=== PATIENT | female | born 1935 | race Caucasian/White ===

== ENCOUNTER 2017-10-23 15:47 | Inpatient (IN) | payer MEDICAID ==
[2017-10-23 16:32] LABS: BASO % 0.8 % (0.0-2.0); EOS % 0.6 % (0.0-4.0); HEMOGLOBIN 11.2 g/dL (11.0-16.0); LYMPH # 1.1 K/uL (1.0-4.3); LYMPH % 21.5 % (20.0-40.0); MEAN CORPUSCULAR HEMOGLOBIN 30.5 pg (27.0-31.0); MEAN CORPUSCULAR HGB CONC 33.9 g/dL (33.0-37.0); MEAN PLATELET VOLUME 11.8 fL (7.2-11.7); MONO # 0.6 K/uL (0.0-0.8); MONO % 11.1 % (0.0-10.0); NEUT # 3.5 K/uL (1.8-7.0); NRBC % 0.1 % (0.0-2.0); RBC 3.68 Mil/uL (3.80-5.20); RED CELL DISTRIBUTION WIDTH 13.2 % (11.5-14.5); WHITE BLOOD COUNT 5.3 K/uL (4.8-10.8)
[2017-10-23 16:40] LABS: INR 1.2; PROTHROMBIN TIME 13.8 SECONDS (9.7-12.2)
[2017-10-23 16:43] LABS: ALBUMIN 3.4 g/dL (3.5-5.0); ALT/SGPT 56 U/L (9-52); AST/SGOT 65 U/L (14-36); BLOOD UREA NITROGEN 15 mg/dL (7-17); CALCIUM 8.5 mg/dl (8.6-10.4); GFR AFRICAN-AMERICAN 58; GFR NON-AFRICAN AMERICAN 48
[2017-10-23] MEDS ORDERED: Potassium Chloride 20 mEq/15 ml LIQ UD PO STA (16:57)
[2017-10-23 17:00] LABS: B-TYPE NATRIURETIC PEPTIDE 5150 pg/mL (0-900)
[2017-10-23] MEDS ORDERED: Potassium Chloride 20 mEq/15 ml LIQ UD ONE (17:23)
[2017-10-23 18:39] LABS: SQUAMOUS EPITHIAL 5 /hpf (0-5); URINE BILIRUBIN NEGATIVE (NEGATIVE); URINE BLOOD 1+ (NEGATIVE); URINE CLARITY Hazy (Clear); URINE COLOR Yellow (YELLOW); URINE GLUCOSE (UA) NORMAL (Normal); URINE HYALINE CAST 0-2 /lpf (0-2); URINE LEUKOCYTE ESTERASE NEG Leu/uL (Negative); URINE PROTEIN 1+ mg/dL (NEGATIVE)
--- NOTE | 2017-10-23 18:41 | RAD ---
PROCEDURE: CHEST RADIOGRAPH, 1 VIEW HISTORY: SOB COMPARISON: Comparison is made to 08/30/2014 FINDINGS: LUNGS: There is interval appearance of heterogeneous opacity at the right lower lung PLEURA: Small right pleural effusion is noted. CARDIOVASCULAR: Normal. OSSEOUS STRUCTURES: No significant abnormalities. VISUALIZED UPPER ABDOMEN: Normal. OTHER FINDINGS: None. IMPRESSION: Suspicious for new infiltrate or opacity at the right lower lung associated with more right pleural effusion.
--- NOTE | 2017-10-23 19:09 | CT ---
EXAM: CT Abdomen and Pelvis Without Intravenous Contrast CLINICAL HISTORY: 81 years old, female; Signs and symptoms; Bloating; Cough; Symptoms not specified; Additional info: SOB. Abnormal cxr. Abdominal distension. TECHNIQUE: Axial computed tomography images of the abdomen and pelvis without intravenous contrast. All CT scans at this facility use one or more dose reduction techniques, viz.: automated exposure control; ma/kV adjustment per patient size (including targeted exams where dose is matched to indication; i.e. head); or iterative reconstruction technique. Coronal and sagittal reformatted images were created and reviewed. COMPARISON: No relevant prior studies available. FINDINGS: Motion artifact degrades the images of the abdomen, in particular the bowel Lung bases: Unremarkable. No mass. No consolidation. ABDOMEN: Liver: The liver surface is nodular. Gallbladder and bile ducts: Unremarkable. No calcified stones. No ductal dilation. Pancreas: There is stranding of the peripancreatic fat. No ductal dilation. Spleen: Unremarkable. No splenomegaly. Adrenals: Unremarkable. No mass. Kidneys and ureters: There is a 2 mm calculus in the right kidney. No hydronephrosis. Stomach and bowel: There is colonic diverticulosis. No obstruction. No mucosal thickening. Appendix: No findings to suggest acute appendicitis. PELVIS: Bladder: Unremarkable. No stones. Reproductive: There is a 3 cm cyst noted in the right adnexa.. ABDOMEN and PELVIS: Intraperitoneal space: There is stranding of the mesenteric fat.. A small amount of ascites seen in the pelvis. No free air. Bones/joints: Degenerative changes are noted in the thoracic and the dorsal spine. No acute fracture. No dislocation. Soft tissues: There is body wall edema. Vasculature: The inferior vena cava is enlarged. There is mild to moderate cardiomegaly. Lymph nodes: Unremarkable. No enlarged lymph nodes. IMPRESSION: 1. Mild enlarged cardiac Silhouette with distended inferior vena cava, body wall edema and a small amount of abdominal ascites. Findings suggest right heart failure. 2. Colonic diverticulosis. 3. Nonobstructing calculus in the midportion of the right kidney. 4. Mesenteric edema including stranding around the pancreas. This may be related to #1. Correlate with serum chemistries to exclude pancreatitis. 5. 3 cm right adnexal cyst. Cyst can be a normal finding in postmenopausal females. Characterization with pelvic ultrasound might be considered as a baseline EXAM: CT Chest Without Intravenous Contrast EXAM DATE/TIME: Exam ordered 10/23/2017 5:12 PM CLINICAL HISTORY: 81 years old, female; Signs and symptoms; Bloating; Cough; Symptoms not specified; Additional info: SOB. Abnormal cxr. Abdominal distension. TECHNIQUE: Axial computed tomography images of the chest without intravenous contrast. All CT scans at this facility use one or more dose reduction techniques, viz.: automated exposure control; ma/kV adjustment per patient size (including targeted exams where dose is matched to indication; i.e. head); or iterative reconstruction technique. Coronal and sagittal reformatted images were created and reviewed. COMPARISON: No relevant prior studies available. FINDINGS: Lungs: See below. Pleural space: Bilateral pleural effusions with compression atelectasis at both bases. Atelectasis is noted within the right middle lobe as well. No pneumothorax. Heart: Minimal coronary artery calcifications present. There is moderate cardiomegaly. No significant pericardial effusion. Bones/joints: There is a reverse S-shaped scoliosis of the thoracolumbar spine. No acute fracture. No dislocation. Soft tissues: There is mild body wall edema. Vasculature: Unremarkable. No thoracic aortic aneurysm. Lymph nodes: Unremarkable. No enlarged lymph nodes. IMPRESSION: Moderate sized bilateral pleural effusions with mild body wall edema and moderate cardiomegaly is with compression atelectasis of the lung bases. This may be an reflection of right heart failure. 2.
--- NOTE | 2017-10-23 20:43 | CP.PCM.CON ---
History of Present Illness - History of Present Illness History of Present Illness: 81yo F. PMHx Asthma, HTN, Osteoporosis. p/w SOB and anasarca secondary to acute CHF exacerbation, type unknown, with bilateral pleural effusions L>R. Found to also have AV dissociation, 3rd degree AV block on EKG. Admitting to ICU for monitoring and probable PPM placement. Review of Systems - Review of Systems All systems: reviewed and no additional remarkable complaints except - Cardiovascular Cardiovascular: Pedal Edema - Respiratory Respiratory: Dyspnea Past Patient History - Past Social History Smoking Status: Never Smoked - CARDIAC Hx Hypertension: Yes - PULMONARY Hx Asthma: Yes Hx Tuberculosis: Yes - MUSCULOSKELETAL/RHEUMATOLOGICAL Hx Osteoporosis: Yes Hx Unsteady Gait: Yes - PSYCHIATRIC Hx Substance Use: No - SURGICAL HISTORY Hx Surgeries: No - ANESTHESIA Hx Anesthesia: No Meds Allergies/Adverse Reactions: Allergies Allergy/AdvReac Type Severity Reaction Status Date / Time No Known Allergies Allergy Verified 10/23/17 15:58 Physical Exam - Head Exam Head Exam: ATRAUMATIC, NORMAL INSPECTION, NORMOCEPHALIC - Eye Exam Eye Exam: EOMI, Normal appearance, PERRL - ENT Exam ENT Exam: Mucous Membranes Moist, Normal Exam - Respiratory Exam Respiratory Exam: Decreased Breath Sounds (at bases) - GI/Abdominal Exam GI & Abdominal Exam: Normal Bowel Sounds. absent: Tenderness - Neurological Exam Neurological exam: Alert, CN II-XII Intact Results - Vital Signs Recent Vital Signs: Last Vital Signs Temp 98.3 F 10/23/17 19:40 Pulse 45 L 10/23/17 19:40 Resp 20 10/23/17 19:40 BP 155/66 H 10/23/17 19:40 Pulse Ox 99 10/23/17 19:40 - Labs Result Diagrams: 10/23/17 16:28 10/23/17 16:28 Labs: Laboratory Results - last 24 hr 10/23/17 10/23/17 10/23/17 16:28 16:28 16:28 WBC 5.3 RBC 3.68 L Hgb 11.2 Hct 33.1 L MCV 90.0 MCH 30.5 MCHC 33.9 RDW 13.2 Plt Count 136 MPV 11.8 H Neut % (Auto) 66.0 Lymph % (Auto) 21.5 [place] % (Auto) 11.1 H Eos % (Auto) 0.6 Baso % (Auto) 0.8 Neut # (Auto) 3.5 Lymph # (Auto) 1.1 [place] # (Auto) 0.6 Eos # (Auto) 0.0 Baso # (Auto) 0.0 PT 13.8 H INR 1.2 APTT 31 Sodium 146 Potassium 3.3 L Chloride 111 H Carbon Dioxide 22 Anion Gap 16 BUN 15 Creatinine 1.1 Est GFR ( Amer) 58 Est GFR (Non-Af Amer) 48 Random Glucose 168 H Calcium 8.5 L Magnesium 1.9 Total Bilirubin 0.9 AST 65 H ALT 56 H Alkaline Phosphatase 55 Troponin I < 0.0120 NT-Pro-B Natriuret Pep 5150 H Total Protein 6.9 Albumin 3.4 L Globulin 3.5 Albumin/Globulin Ratio 1.0 Urine Color Urine Clarity Urine pH Ur Specific [place] Urine Protein Urine Glucose (UA) Urine Ketones Urine Blood Urine Nitrate Urine Bilirubin Urine Urobilinogen Ur Leukocyte Esterase Urine WBC (Auto) Urine RBC (Auto) Ur Squamous Epith Cells Hyaline Casts 10/23/17 18:28 WBC RBC Hgb Hct MCV MCH MCHC RDW Plt Count MPV Neut % (Auto) Lymph % (Auto) [place] % (Auto) Eos % (Auto) Baso % (Auto) Neut # (Auto) Lymph # (Auto) [place] # (Auto) Eos # (Auto) Baso # (Auto) PT INR APTT Sodium Potassium Chloride Carbon Dioxide Anion Gap BUN Creatinine Est GFR ( Amer) Est GFR (Non-Af Amer) Random Glucose Calcium Magnesium Total Bilirubin AST ALT Alkaline Phosphatase Troponin I NT-Pro-B Natriuret Pep Total Protein Albumin Globulin Albumin/Globulin Ratio Urine Color Yellow Urine Clarity Hazy Urine pH 5.0 Ur Specific [place] 1.012 Urine Protein 1+ H Urine Glucose (UA) Normal Urine Ketones Negative Urine Blood 1+ H Urine Nitrate Negative Urine Bilirubin Negative Urine Urobilinogen 2.0 H Ur Leukocyte Esterase Neg Urine WBC (Auto) 4 Urine RBC (Auto) 10 H Ur Squamous Epith Cells 5 Hyaline Casts 0-2 Assessment & Plan (1) Third degree AV block Assessment and Plan: 81yo F. PMHx Asthma, HTN, Osteoporosis. p/w SOB and anasarca secondary to acute CHF exacerbation, type unknown, with bilateral pleural effusions L>R. Found to also have AV dissociation, 3rd degree AV block on EKG. Admitting to ICU for monitoring and probable PPM placement. Neuro: alert and oriented x 3 Pulm: SOB secondary to pulmonary edema with bilateral pleural effusions, diuresing. Will start BIPAP if needed. currently on [place] oxygen. CV: hemodynamically stable. Bradycardic with 3rd degree AV block. bedside external pacer to be placed. Being evaluated for PPM placement. Acute CHF exacerbation, diuresis for now. Obtain echo. Blood pressure control. Hem: no acute issues. Renal: no acute issues, diuresing. Endo: no acute issues GI: heart healthy diet ID: no acute issues DVT proph - lovenox GI proph - not currently indicated sawyer for strict I/O's during acute illness Code status - full code Critical Care Time spent 35 minutes Multi-disciplinary rounds were performed with house staff, nursing, speech therapy, respiratory therapy, pharmacy and nutrition with integrated input from the primary team/attending and other consulting services. The documented time is cumulative and includes review of patient data/exams/labs/chart review and examination of the patient on rounds and throughout the day; time is exclusive of any procedures or teaching time. Status: Acute
--- NOTE | 2017-10-23 20:55 | C.PDOC ---
Time Seen by Provider: 10/23/17 16:05 Chief Complaint (Nursing): Shortness Of Breath History Per: Patient, Family Onset/Duration Of Symptoms: Days Current Symptoms Are (Timing): Worse Current Respiratory Medications: See Home Med List Severity: Moderate Associated Symptoms: Ankle/Leg Swelling Additional History Per: Prior Records Past Medical History Reviewed: Historical Data, Nursing Documentation, Vital Signs Vital Signs: Last Vital Signs Temp 98.3 F 10/23/17 19:40 Pulse 45 L 10/23/17 19:40 Resp 20 10/23/17 19:40 BP 155/66 H 10/23/17 19:40 Pulse Ox 99 10/23/17 19:40 - Medical History PMH: Asthma, HTN, Osteoporosis Family History: States: Unknown Family Hx - Social History Hx Alcohol Use: No Hx Substance Use: No - Immunization History Hx Tetanus Toxoid Vaccination: No Hx Influenza Vaccination: No Hx Pneumococcal Vaccination: No Review Of Systems Except As Marked, All Systems Reviewed And Found Negative. Constitutional: Negative for: Fever Cardiovascular: Positive for: Edema Respiratory: Positive for: Shortness of Breath Gastrointestinal: Positive for: Other (Abdominal distention). Negative for: Vomiting Musculoskeletal: Negative for: Neck Pain Neurological: Negative for: Weakness, Numbness, Seizures, Altered Mental Status Physical Exam - Physical Exam Appears: No Acute Distress, Chronically Ill Skin: Normal Color, Warm, Dry Head: Atraumatic, Normacephalic Eye(s): bilateral: PERRL, EOMI Neck: Normal ROM, Supple Cardiovascular: Rhythm Regular Respiratory: No Accessory Muscle Use, Rales (at bases) Gastrointestinal/Abdominal: Soft, No Tenderness, Distention Extremity: Normal ROM, Pedal Edema, No Calf Tenderness Neurological/Psych: Oriented x3, Normal Motor, Normal Sensation ED Course And Treatment - Laboratory Results Result Diagrams: 10/23/17 16:28 10/23/17 16:28 Interpretation Of Abnormal: Elevated BNP ECG: Interpreted By Me, Viewed By Me ECG Rhythm: 2nd Degree HB [place] II (?), 3rd Degree HB (?) ECG Interpretation: Abnormal Interpretation Of ECG: AV dissociation Rate From EC O2 Sat by Pulse Oximetry: 99 (on [place]) Pulse Ox Interpretation: Normal - CT Scan/US CT chest/abd/pel Other Rad Studies (CT/US): Read By Radiologist, Radiology Report Reviewed CT/US Interpretation: IMPRESSION: Moderate sized bilateral pleural effusions with mild body wall edema and. moderate cardiomegaly is with compression atelectasis of the lung bases. This. may be an reflection of right heart failure. IMPRESSION: 1. Mild enlarged cardiac Silhouette with distended inferior vena cava, body. wall edema and a small amount of abdominal ascites. Findings suggest right. heart failure. . 2. Colonic diverticulosis. . 3. Nonobstructing calculus in the midportion of the right kidney. . 4. Mesenteric edema including stranding around the pancreas. This may be. related to #1. Correlate with serum chemistries to exclude pancreatitis. . 5. 3 cm right adnexal cyst. Cyst can be a normal finding in postmenopausal. females. Characterization with pelvic ultrasound might be considered as a baseline - Physician Consult Information Physician Contacted: Wilbert Lovelace (Cardio) Outcome Of Conversation: He reviewed the EKG. He wants pt to be admitted to ICU and he will consult. Pt was accepted by Dr. Santillan to ICU Progress - Interventions Interventions:: Observation, Oxygen - Medications Administered Oral: Other (KCl) Intravenous: Diuretic - Data Reviewed Data Reviewed: Lab, Diagnostic imaging, EKG, Old records - Patient Status Patient status: Partially improved - Critical Care Citical Care: Excluding Proc Time Critical Care Time: 60 minutes - Continuity of Care Discussed patient case with:: Patient, Family-HIPPA compliant, ED Nurse, Covering for PMD Discussed pt. case with programmer analyst consultant/specialty: Cardiology, Pulmonary/Crit. Care - Patient Plan Patient Plan: Admission, ICU Disposition Discussed With DrMansoor: Gera Bhandari Comment: He accepted pt on hospitalist service. Doctor Will See Patient In The: Hospital Counseled Patient/Family Regarding: Studies Performed, Diagnosis - Disposition Disposition: HOSPITALIZED Disposition Time: 20:58 Condition: SERIOUS - Clinical Impression Clinical Impression: AV dissociation, Anasarca, CHF exacerbation
--- NOTE | 2017-10-23 22:29 | CP.PCM.HP ---
<Lupe Thomas - Last Filed: 10/24/17 05:42> History of Present Illness - History of Present Illness History of Present Illness: CC: facial and lower extremity swelling 81 year old female with past medical history of hypertension presents to the ED today complaining of shortness of breath, facial swelling and bilateral lower extremity swelling. Patient reports her symptom started 3 days ago and they have been getting worse progressively. Patient denies prior history of the same. Patient also denies having recent cardiac workup done. Patient saw her PMD 2 weeks prior and denies medication changes. Patient denies having fever, chills, headache, nausea, vomiting, diarrhea, or urinary symptoms. Mold Cleaner used [id number] PMD: Bhanu Ramires PMHx: HTN, osteoporosis PSHx: denies Allergy: NKDA Social Hx: Denies tobacco, alcohol or other drug use Family Hx: non contributory Home meds: ASA 81mg, norvasc 5mg Present on Admission - Present on Admission Any Indicators Present on Admission: No Review of Systems - Constitutional Constitutional: As Per HPI. absent: Chills, Fever - EENT Eyes: As Per HPI. absent: Blind Spots, Blurred Vision, Decreased Night Vision Ears: As Per HPI. absent: Decreased Hearing, Ear Discharge, Dizziness Nose/Mouth/Throat: As Per HPI. absent: Epistaxis, Nasal Obstruction, Nasal Trauma - Breasts Breasts: As Per HPI - Cardiovascular Cardiovascular: As Per HPI, Edema, Leg Edema. absent: Chest Pain, Chest Pain at Rest, Chest Pain with Activity, Syncope - Respiratory Respiratory: As Per HPI, Cough, Dyspnea - Gastrointestinal Gastrointestinal: As Per HPI. absent: Abdominal Pain, Diarrhea, Nausea, Vomiting - Genitourinary Genitourinary: As Per HPI. absent: Dysuria, Flank Pain - Reproductive: Female Reproductive:Female: As Per HPI - Menstruation Menstruation: As Per HPI - Musculoskeletal Musculoskeletal: As Per HPI - Integumentary Integumentary: As Per HPI - Neurological Neurological: As Per HPI. absent: Dizziness, Headaches, Tremor - Psychiatric Psychiatric: As Per HPI. absent: Anxiety, Confusion - Endocrine Endocrine: As Per HPI - Hematologic/Lymphatic Hematologic: As Per HPI Past Patient History - Past Social History Smoking Status: Never Smoked - CARDIAC Hx Hypertension: Yes - PULMONARY Hx Asthma: Yes Hx Tuberculosis: Yes - MUSCULOSKELETAL/RHEUMATOLOGICAL Hx Osteoporosis: Yes Hx Unsteady Gait: Yes - PSYCHIATRIC Hx Substance Use: No - SURGICAL HISTORY Hx Surgeries: No - ANESTHESIA Hx Anesthesia: No Meds Allergies/Adverse Reactions: Allergies Allergy/AdvReac Type Severity Reaction Status Date / Time No Known Allergies Allergy Verified 10/23/17 15:58 Physical Exam - Constitutional Appears: Non-toxic, No Acute Distress, Chronically Ill - Head Exam Head Exam: ATRAUMATIC, NORMOCEPHALIC - Eye Exam Eye Exam: EOMI, Normal appearance - ENT Exam ENT Exam: Mucous Membranes Moist - Respiratory Exam Respiratory Exam: Decreased Breath Sounds, NORMAL BREATHING PATTERN. absent: Respiratory Distress - Cardiovascular Exam Cardiovascular Exam: REGULAR RHYTHM, +S1, +S2 - GI/Abdominal Exam GI & Abdominal Exam: Normal Bowel Sounds, Soft. absent: Tenderness - Extremities Exam Extremities exam: Positive for: pedal edema, pedal pulses present Additional comments: bilateral lower extremity edema - Neurological Exam Neurological exam: Alert, Oriented x3 - Psychiatric Exam Psychiatric exam: Normal Affect, Normal Mood - Skin Skin Exam: Dry, Warm Results - Vital Signs Recent Vital Signs: Last Vital Signs Temp 98.1 F 10/23/17 21:40 Pulse 47 L 10/23/17 21:40 Resp 20 10/23/17 21:40 BP 154/100 H 10/23/17 21:40 Pulse Ox 98 10/23/17 21:40 - Labs Result Diagrams: 10/23/17 16:28 10/23/17 16:28 Labs: Laboratory Results - last 24 hr 10/23/17 10/23/17 10/23/17 16:28 16:28 16:28 WBC 5.3 RBC 3.68 L Hgb 11.2 Hct 33.1 L MCV 90.0 MCH 30.5 MCHC 33.9 RDW 13.2 Plt Count 136 MPV 11.8 H Neut % (Auto) 66.0 Lymph % (Auto) 21.5 [place] % (Auto) 11.1 H Eos % (Auto) 0.6 Baso % (Auto) 0.8 Neut # (Auto) 3.5 Lymph # (Auto) 1.1 [place] # (Auto) 0.6 Eos # (Auto) 0.0 Baso # (Auto) 0.0 PT 13.8 H INR 1.2 APTT 31 Sodium 146 Potassium 3.3 L Chloride 111 H Carbon Dioxide 22 Anion Gap 16 BUN 15 Creatinine 1.1 Est GFR ( Amer) 58 Est GFR (Non-Af Amer) 48 Random Glucose 168 H Calcium 8.5 L Magnesium 1.9 Total Bilirubin 0.9 AST 65 H ALT 56 H Alkaline Phosphatase 55 Troponin I < 0.0120 NT-Pro-B Natriuret Pep 5150 H Total Protein 6.9 Albumin 3.4 L Globulin 3.5 Albumin/Globulin Ratio 1.0 Urine Color Urine Clarity Urine pH Ur Specific [place] Urine Protein Urine Glucose (UA) Urine Ketones Urine Blood Urine Nitrate Urine Bilirubin Urine Urobilinogen Ur Leukocyte Esterase Urine WBC (Auto) Urine RBC (Auto) Ur Squamous Epith Cells Hyaline Casts 10/23/17 18:28 WBC RBC Hgb Hct MCV MCH MCHC RDW Plt Count MPV Neut % (Auto) Lymph % (Auto) [place] % (Auto) Eos % (Auto) Baso % (Auto) Neut # (Auto) Lymph # (Auto) [place] # (Auto) Eos # (Auto) Baso # (Auto) PT INR APTT Sodium Potassium Chloride Carbon Dioxide Anion Gap BUN Creatinine Est GFR ( Amer) Est GFR (Non-Af Amer) Random Glucose Calcium Magnesium Total Bilirubin AST ALT Alkaline Phosphatase Troponin I NT-Pro-B Natriuret Pep Total Protein Albumin Globulin Albumin/Globulin Ratio Urine Color Yellow Urine Clarity Hazy Urine pH 5.0 Ur Specific [place] 1.012 Urine Protein 1+ H Urine Glucose (UA) Normal Urine Ketones Negative Urine Blood 1+ H Urine Nitrate Negative Urine Bilirubin Negative Urine Urobilinogen 2.0 H Ur Leukocyte Esterase Neg Urine WBC (Auto) 4 Urine RBC (Auto) 10 H Ur Squamous Epith Cells 5 Hyaline Casts 0-2 Assessment & Plan - Assessment and Plan (Free Text) Assessment: Anasarca, shortness of breath -Likely secondary to CHF Exacerbation -Management per ICU team 3rd degree AV block -Cardiology consulted, Dr. Lovelace help appreciated Hypertension -Resume Norvasc 5mg <Gera Bhandari - Last Filed: 10/24/17 06:26> Results - Vital Signs Recent Vital Signs: Last Vital Signs Temp 97.8 F 10/24/17 04:00 Pulse 42 L 10/24/17 06:00 Resp 22 10/24/17 06:00 BP 149/57 L 10/24/17 05:58 Pulse Ox 99 10/24/17 06:00 - Labs Result Diagrams: 10/24/17 05:56 10/23/17 16:28 Labs: Laboratory Results - last 24 hr 10/23/17 10/23/17 10/23/17 16:28 16:28 16:28 WBC 5.3 RBC 3.68 L Hgb 11.2 Hct 33.1 L MCV 90.0 MCH 30.5 MCHC 33.9 RDW 13.2 Plt Count 136 MPV 11.8 H Neut % (Auto) 66.0 Lymph % (Auto) 21.5 [place] % (Auto) 11.1 H Eos % (Auto) 0.6 Baso % (Auto) 0.8 Neut # (Auto) 3.5 Lymph # (Auto) 1.1 [place] # (Auto) 0.6 Eos # (Auto) 0.0 Baso # (Auto) 0.0 PT 13.8 H INR 1.2 APTT 31 Sodium 146 Potassium 3.3 L Chloride 111 H Carbon Dioxide 22 Anion Gap 16 BUN 15 Creatinine 1.1 Est GFR ( Amer) 58 Est GFR (Non-Af Amer) 48 Random Glucose 168 H Calcium 8.5 L Magnesium 1.9 Total Bilirubin 0.9 AST 65 H ALT 56 H Alkaline Phosphatase 55 Troponin I < 0.0120 NT-Pro-B Natriuret Pep 5150 H Total Protein 6.9 Albumin 3.4 L Globulin 3.5 Albumin/Globulin Ratio 1.0 Urine Color Urine Clarity Urine pH Ur Specific [place] Urine Protein Urine Glucose (UA) Urine Ketones Urine Blood Urine Nitrate Urine Bilirubin Urine Urobilinogen Ur Leukocyte Esterase Urine WBC (Auto) Urine RBC (Auto) Ur Squamous Epith Cells Hyaline Casts 10/23/17 10/24/17 18:28 05:56 WBC 6.5 RBC 3.47 L Hgb 10.6 L Hct 31.3 L MCV 90.3 MCH 30.5 MCHC 33.8 RDW 13.5 Plt Count 125 L MPV 12.8 H Neut % (Auto) 55.5 Lymph % (Auto) 30.9 [place] % (Auto) 12.4 H Eos % (Auto) 0.5 Baso % (Auto) 0.7 Neut # (Auto) 3.6 Lymph # (Auto) 2.0 [place] # (Auto) 0.8 Eos # (Auto) 0.0 Baso # (Auto) 0.0 PT INR APTT Sodium Potassium Chloride Carbon Dioxide Anion Gap BUN Creatinine Est GFR ( Amer) Est GFR (Non-Af Amer) Random Glucose Calcium Magnesium Total Bilirubin AST ALT Alkaline Phosphatase Troponin I NT-Pro-B Natriuret Pep Total Protein Albumin Globulin Albumin/Globulin Ratio Urine Color Yellow Urine Clarity Hazy Urine pH 5.0 Ur Specific [place] 1.012 Urine Protein 1+ H Urine Glucose (UA) Normal Urine Ketones Negative Urine Blood 1+ H Urine Nitrate Negative Urine Bilirubin Negative Urine Urobilinogen 2.0 H Ur Leukocyte Esterase Neg Urine WBC (Auto) 4 Urine RBC (Auto) 10 H Ur Squamous Epith Cells 5 Hyaline Casts 0-2 Assessment & Plan - Date & Time Date: 10/24/17 (I have seen and examined the patient. I agree with the findings and plan of care as documented by Dr. Thomas. Patient with Acute CHF, third degree heart block, and pulmonary edema. Consult to cardio. Admit to ICU. Management as per ICU. Monitor for acute changes.) Time: 06:25 Attending/Attestation - Attestation I have personally seen and examined this patient.: Yes I have fully participated in the care of the patient.: Yes I have reviewed all pertinent clinical information: Yes
[2017-10-24 06:03] LABS: BASO % 0.7 % (0.0-2.0); EOS % 0.5 % (0.0-4.0); HEMOGLOBIN 10.6 g/dL (11.0-16.0); LYMPH % 30.9 % (20.0-40.0); MEAN CELL VOLUME 90.3 fL (81.0-99.0); MEAN CORPUSCULAR HEMOGLOBIN 30.5 pg (27.0-31.0); MEAN CORPUSCULAR HGB CONC 33.8 g/dL (33.0-37.0); MEAN PLATELET VOLUME 12.8 fL (7.2-11.7); MONO # 0.8 K/uL (0.0-0.8); MONO % 12.4 % (0.0-10.0); NEUT # 3.6 K/uL (1.8-7.0); NEUT % 55.5 % (50.0-75.0); NRBC % 0.1 % (0.0-2.0); RBC 3.47 Mil/uL (3.80-5.20); RED CELL DISTRIBUTION WIDTH 13.5 % (11.5-14.5); WHITE BLOOD COUNT 6.5 K/uL (4.8-10.8)
[2017-10-24 06:50] LABS: ALB/GLOB RATIO 0.9 (1.0-2.1); ALBUMIN 3.1 g/dL (3.5-5.0)
[2017-10-24 07:02] LABS: ALT/SGPT 49 U/L (9-52); AST/SGOT 61 U/L (14-36); BLOOD UREA NITROGEN 15 mg/dL (7-17); CALCIUM 8.9 mg/dl (8.6-10.4); GFR AFRICAN-AMERICAN > 60; GFR NON-AFRICAN AMERICAN 53
[2017-10-24] MEDS ORDERED: Potassium Chloride 20 mEq/15 ml LIQ UD PO ONE (07:30)
[2017-10-24 08:22] LABS: CK-MB 0.92 ng/mL (0.0-3.38)
--- NOTE | 2017-10-24 08:27 | RAD ---
PROCEDURE: CHEST RADIOGRAPH, 1 VIEW HISTORY: chf exacerbation COMPARISON: 10/23/2009 FINDINGS: LUNGS: Clear. PLEURA: No pneumothorax or pleural fluid seen. CARDIOVASCULAR: Cardiomegaly. No congestive change. OSSEOUS STRUCTURES: Thoracic levoscoliosis. VISUALIZED UPPER ABDOMEN: Normal. OTHER FINDINGS: None. IMPRESSION: No active disease.
--- NOTE | 2017-10-24 10:04 | CP.PCM.CON ---
<Wale Upton - Last Filed: 10/24/17 15:17> History of Present Illness - History of Present Illness History of Present Illness: PGY-[address] 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 Patient reports her symptom started 3 days ago and they have been getting worse progressively. Patient denies prior history of the same. Patient also denies having recent cardiac workup done. Patient saw her PMD 2 weeks prior and denies medication changes. Patient denies having chest pain, fever, chills, headache, nausea, vomiting, diarrhea, or urinary symptoms. Pt seen and examined at bedside. Nursing reports no acute events overnight. Patient denies chest pain, dizziness, SOB, or palpitations this AM. She is able to talk in full sentences. Denies seeing die casting machine setter recently or having recent cath/stress test. PMD: Bhanu Ramires PMHx: HTN, osteoporosis PSHx: denies Allergy: NKDA Social Hx: Denies tobacco, alcohol or other drug use Family Hx: non contributory Home meds: ASA 81mg, norvasc 5mg Review of Systems - Constitutional Constitutional: Weight Gain. absent: Anorexia, Snoring - EENT Eyes: absent: Change in Vision Nose/Mouth/Throat: absent: Nasal Discharge - Cardiovascular Cardiovascular: Dyspnea, Dyspnea on Exertion, Leg Edema, Pedal Edema. absent: Chest Pain - Respiratory Respiratory: Dyspnea, Dyspnea on Exertion - Gastrointestinal Gastrointestinal: absent: Nausea, Vomiting - Genitourinary Genitourinary: absent: Dysuria - Musculoskeletal Musculoskeletal: absent: Numbness, Tingling - Neurological Neurological: absent: Tingling, Weakness - Endocrine Endocrine: absent: Fatigue, Palpitations Past Patient History - Past Medical History & Family History Past Medical History?: Yes - Past Social History Smoking Status: Never Smoked - CARDIAC Hx Hypertension: Yes - PULMONARY Hx Asthma: Yes Hx Tuberculosis: Yes - NEUROLOGICAL Hx Neurological Disorder: No - HEENT Hx HEENT Problems: No - RENAL Hx Chronic Kidney Disease: No - ENDOCRINE/METABOLIC Hx Endocrine Disorders: No - HEMATOLOGICAL/ONCOLOGICAL Hx Blood Disorders: No - INTEGUMENTARY Hx Dermatological Problems: No - MUSCULOSKELETAL/RHEUMATOLOGICAL Hx Osteoporosis: Yes Hx Unsteady Gait: Yes - GASTROINTESTINAL Hx Gastrointestinal Disorders: No - GENITOURINARY/GYNECOLOGICAL Hx Genitourinary Disorders: No - PSYCHIATRIC Hx Substance Use: No - SURGICAL HISTORY Hx Surgeries: No - ANESTHESIA Hx Anesthesia: No Meds Allergies/Adverse Reactions: Allergies Allergy/AdvReac Type Severity Reaction Status Date / Time No Known Allergies Allergy Verified 10/23/17 15:58 - Medications Medications: Current Medications Amlodipine Besylate (Norvasc) 5 mg PO DAILY [facility] Enoxaparin Sodium (Lovenox) 40 mg SC DAILY [facility] Famotidine (Pepcid) 20 mg IVP DAILY [facility] Last Admin: 10/24/17 09:59 Dose: 20 mg Furosemide (Lasix) 40 mg IVP Q12H [facility] Last Admin: 10/24/17 07:25 Dose: 40 mg Pneumococcal Polyvalent Vaccine (Pneumovax 23 Vaccine) 0.5 ml IM .ONCE ONE Stop: 10/25/17 10:01 Physical Exam - Additional Findings Additional findings: - Constitutional Appears: Non-toxic, No Acute Distress, Chronically Ill - Head Exam Head Exam: ATRAUMATIC, NORMOCEPHALIC - Eye Exam Eye Exam: EOMI, Normal appearance - ENT Exam ENT Exam: Mucous Membranes Moist - Respiratory Exam Respiratory Exam: Decreased Breath Sounds, NORMAL BREATHING PATTERN. absent: Respiratory Distress - Cardiovascular Exam Cardiovascular Exam: REGULAR RHYTHM, +S1, +S2 - GI/Abdominal Exam GI & Abdominal Exam: Normal Bowel Sounds, Soft. absent: Tenderness - Extremities Exam Extremities exam: Positive for: pedal edema, pedal pulses present Additional comments: bilateral lower extremity edema - Neurological Exam Neurological exam: Alert, Oriented x3 - Psychiatric Exam Psychiatric exam: Normal Affect, Normal Mood - Skin Skin Exam: Dry, Warm Results - Vital Signs Recent Vital Signs: Last Vital Signs Temp 99.4 F 10/24/17 08:00 Pulse 44 L 10/24/17 07:58 Resp 17 10/24/17 07:58 BP 136/57 L 10/24/17 07:58 Pulse Ox 96 10/24/17 07:58 - Labs Result Diagrams: 10/24/17 05:56 10/24/17 05:56 Labs: Laboratory Results - last 24 hr 10/23/17 10/23/17 10/23/17 16:28 16:28 16:28 WBC 5.3 RBC 3.68 L Hgb 11.2 Hct 33.1 L MCV 90.0 MCH 30.5 MCHC 33.9 RDW 13.2 Plt Count 136 MPV 11.8 H Neut % (Auto) 66.0 Lymph % (Auto) 21.5 Boundary % (Auto) 11.1 H Eos % (Auto) 0.6 Baso % (Auto) 0.8 Neut # (Auto) 3.5 Lymph # (Auto) 1.1 Boundary # (Auto) 0.6 Eos # (Auto) 0.0 Baso # (Auto) 0.0 Differential Comment PT 13.8 H INR 1.2 APTT 31 Sodium 146 Potassium 3.3 L Chloride 111 H Carbon Dioxide 22 Anion Gap 16 BUN 15 Creatinine 1.1 Est GFR ( Amer) 58 Est GFR (Non-Af Amer) 48 Random Glucose 168 H Calcium 8.5 L Phosphorus Magnesium 1.9 Total Bilirubin 0.9 AST 65 H ALT 56 H Alkaline Phosphatase 55 Total Creatine Kinase CK-MB (Mass) Troponin I < 0.0120 NT-Pro-B Natriuret Pep 5150 H Total Protein 6.9 Albumin 3.4 L Globulin 3.5 Albumin/Globulin Ratio 1.0 Urine Color Urine Clarity Urine pH Ur Specific [place] Urine Protein Urine Glucose (UA) Urine Ketones Urine Blood Urine Nitrate Urine Bilirubin Urine Urobilinogen Ur Leukocyte Esterase Urine WBC (Auto) Urine RBC (Auto) Ur Squamous Epith Cells Hyaline Casts 10/23/17 10/24/17 10/24/17 18:28 05:56 05:56 WBC 6.5 RBC 3.47 L Hgb 10.6 L Hct 31.3 L MCV 90.3 MCH 30.5 MCHC 33.8 RDW 13.5 Plt Count 125 L MPV 12.8 H Neut % (Auto) 55.5 Lymph % (Auto) 30.9 Boundary % (Auto) 12.4 H Eos % (Auto) 0.5 Baso % (Auto) 0.7 Neut # (Auto) 3.6 Lymph # (Auto) 2.0 Boundary # (Auto) 0.8 Eos # (Auto) 0.0 Baso # (Auto) 0.0 Differential Comment PT INR APTT Sodium 145 Potassium 3.2 L Chloride 109 H Carbon Dioxide 23 Anion Gap 17 BUN 15 Creatinine 1.0 Est GFR ( Amer) > 60 Est GFR (Non-Af Amer) 53 Random Glucose 87 Calcium 8.9 Phosphorus 4.1 Magnesium 1.8 Total Bilirubin 0.9 AST 61 H ALT 49 Alkaline Phosphatase 56 Total Creatine Kinase 68 CK-MB (Mass) 0.92 Troponin I 0.0200 NT-Pro-B Natriuret Pep Total Protein 6.4 Albumin 3.1 L Globulin 3.3 Albumin/Globulin Ratio 0.9 L Urine Color Yellow Urine Clarity Hazy Urine pH 5.0 Ur Specific [place] 1.012 Urine Protein 1+ H Urine Glucose (UA) Normal Urine Ketones Negative Urine Blood 1+ H Urine Nitrate Negative Urine Bilirubin Negative Urine Urobilinogen 2.0 H Ur Leukocyte Esterase Neg Urine WBC (Auto) 4 Urine RBC (Auto) 10 H Ur Squamous Epith Cells 5 Hyaline Casts 0-2 Assessment & Plan - Assessment and Plan (Free Text) Plan: 3rd degree AV block Cardiology consulted, Dr. Lovelace EP die casting machine setter, Dr Anderson consulted EKrd degree heart block - pwave/qrs dissociation; Vent rhythm 44; Likely will need pacemaker, cardiac cath - currently temporary transcutaneous pads placed Troponin negative x 3 CHF exacerbation, unknown type CXR (10/23/17): NAD BNP 5150 (no others to compare) Lasix 40mg IV Q12H f/u ECHO Anasarca - secondary to CHF Exacerbation, Albumin low (3.1) - Management per ICU team Hypertension - Norvasc 5mg Electrolyte abnormality K 3.2 on AM labs; repleted Wale Upton PGY-2 D/w Dr. Lovelace <Wilbert Lovelace - Last Filed: 10/24/17 22:04> Meds - Medications Medications: Current Medications Amlodipine Besylate (Norvasc) 5 mg PO DAILY [facility] Last Admin: 10/24/17 13:34 Dose: 5 mg Enoxaparin Sodium (Lovenox) 40 mg SC DAILY [facility] Last Admin: 10/24/17 13:35 Dose: Not Given Famotidine (Pepcid) 20 mg IVP DAILY [facility] Last Admin: 10/24/17 09:59 Dose: 20 mg Furosemide (Lasix) 40 mg IVP Q12H [facility] Last Admin: 10/24/17 20:22 Dose: 40 mg Pneumococcal Polyvalent Vaccine (Pneumovax 23 Vaccine) 0.5 ml IM .ONCE ONE Stop: 10/25/17 10:01 Results - Vital Signs Recent Vital Signs: Last Vital Signs Temp 98.2 F 10/24/17 16:00 Pulse 50 L 10/24/17 19:01 Resp 23 10/24/17 19:01 BP 152/72 H 10/24/17 20:22 Pulse Ox 98 10/24/17 19:01 - Labs Result Diagrams: 10/24/17 05:56 10/24/17 05:56 Labs: Laboratory Results - last 24 hr 10/24/17 10/24/17 10/24/17 05:56 05:56 13:32 WBC 6.5 RBC 3.47 L Hgb 10.6 L Hct 31.3 L MCV 90.3 MCH 30.5 MCHC 33.8 RDW 13.5 Plt Count 125 L MPV 12.8 H Neut % (Auto) 55.5 Lymph % (Auto) 30.9 Boundary % (Auto) 12.4 H Eos % (Auto) 0.5 Baso % (Auto) 0.7 Neut # (Auto) 3.6 Lymph # (Auto) 2.0 Boundary # (Auto) 0.8 Eos # (Auto) 0.0 Baso # (Auto) 0.0 Differential Comment Sodium 145 Potassium 3.2 L Chloride 109 H Carbon Dioxide 23 Anion Gap 17 BUN 15 Creatinine 1.0 Est GFR ( Amer) > 60 Est GFR (Non-Af Amer) 53 Random Glucose 87 Calcium 8.9 Phosphorus 4.1 Magnesium 1.8 Total Bilirubin 0.9 AST 61 H ALT 49 Alkaline Phosphatase 56 Total Creatine Kinase 68 70 CK-MB (Mass) 0.92 0.87 Troponin I 0.0200 0.0120 Total Protein 6.4 Albumin 3.1 L Globulin 3.3 Albumin/Globulin Ratio 0.9 L Assessment & Plan - Assessment and Plan (Free Text) Plan: Patient seen and evaluated personally by tn Plan of care d/w the medical office technology instructor and as documented
--- NOTE | 2017-10-24 11:02 | CP.CCUPN ---
<Dave Castro S - Last Filed: 10/24/17 10:52> CCU Subjective - Physician Review Subjective (Free Text): 10/24/17 10:52 Patient seen and examined. Patient states that she does not have any complaints at this time. She is breathing well and does not feel dizzy or weak at this time. CCU Objective - Vital Signs / Intake & Output Vital Signs (Last 4 hours): Vital Signs Temp Pulse Resp BP Pulse Ox 10/24/17 08:00 99.4 F 10/24/17 07:58 44 L 17 136/57 L 96 10/24/17 07:25 140/55 L 10/24/17 06:58 43 L 21 140/55 L 96 Intake and Output (Last 8hrs): Intake & Output 10/23/17 10/24/17 10/24/17 22:59 06:59 14:59 Intake Total 0 0 150 Output Total 1200 1240 Balance -1200 -1240 150 Weight 114 lb 114 lb 9.6 oz Intake: Intake, IV Amount 0 0 Left Forearm 0 0 Oral 0 0 150 Output: Urine 1200 1240 Urethral ([place]) 400 1240 - Physical Exam Head: Positive for: Atraumatic, Normocephalic Pupils: Positive for: PERRL Extroacular Muscles: Positive for: EOMI Conjunctiva: Positive for: Normal Mouth: Positive for: Moist Mucous Membranes Respiratory/Chest: Positive for: Clear to Auscultation. Negative for: Wheezes, Rales, Rhonchi Cardiovascular: Positive for: Normal S1, S2, Bradycardic Abdomen: Positive for: Normal Bowel Sounds. Negative for: Tenderness, Distention Upper Extremity: Positive for: Normal Inspection Lower Extremity: Positive for: Normal Inspection Neurological: Positive for: GCS=15 Skin: Positive for: Warm, Dry Psychiatric: Positive for: Alert - Medications Active Medications: Active Medications Generic Name Dose Route Start Last Admin Trade Name Freq PRN Reason Stop Dose Admin Amlodipine Besylate 5 mg 10/24/17 10:00 Norvasc PO DAILY [facility] Enoxaparin Sodium 40 mg 10/24/17 10:00 Lovenox SC DAILY [facility] Famotidine 20 mg 10/24/17 10:00 10/24/17 09:59 Pepcid IVP 20 mg DAILY [facility] Administration Furosemide 40 mg 10/24/17 08:00 10/24/17 07:25 Lasix IVP 40 mg Q12H [facility] Administration Pneumococcal Polyvalent Vaccine 0.5 ml 10/25/17 10:00 Pneumovax 23 Vaccine IM 10/25/17 10:01 .ONCE ONE - Patient Studies Lab Studies: Lab Studies 10/24/17 10/24/17 10/23/17 Range/Units 05:56 05:56 18:28 WBC 6.5 (4.8-10.8) K/uL RBC 3.47 L (3.80-5.20) Mil/uL Hgb 10.6 L (11.0-16.0) g/dL Hct 31.3 L (34.0-47.0) % MCV 90.3 (81.0-99.0) fL MCH 30.5 (27.0-31.0) pg MCHC 33.8 (33.0-37.0) g/dL RDW 13.5 (11.5-14.5) % Plt Count 125 L (130-400) K/uL MPV 12.8 H (7.2-11.7) fL Neut % (Auto) 55.5 (50.0-75.0) % Lymph % (Auto) 30.9 (20.0-40.0) % Isabel[place] % (Auto) 12.4 H (0.0-10.0) % Eos % (Auto) 0.5 (0.0-4.0) % Baso % (Auto) 0.7 (0.0-2.0) % Neut # (Auto) 3.6 (1.8-7.0) K/uL Lymph # (Auto) 2.0 (1.0-4.3) K/uL [place] # (Auto) 0.8 (0.0-0.8) K/uL Eos # (Auto) 0.0 (0.0-0.7) K/uL Baso # (Auto) 0.0 (0.0-0.2) K/uL Differential Comment PT (9.7-12.2) SECONDS INR APTT (21-34) SECONDS Sodium 145 (132-148) mmol/L Potassium 3.2 L (3.6-5.2) mmol/L Chloride 109 H (98-107) mmol/L Carbon Dioxide 23 (22-30) mmol/L Anion Gap 17 (10-20) BUN 15 (7-17) mg/dL Creatinine 1.0 (0.7-1.2) mg/dL Est GFR ( Amer) > 60 Est GFR (Non-Af Amer) 53 Random Glucose 87 (65-105) mg/dL Calcium 8.9 (8.6-10.4) mg/dl Phosphorus 4.1 (2.5-4.5) mg/dL Magnesium 1.8 (1.6-2.3) mg/dL Total Bilirubin 0.9 (0.2-1.3) mg/dL AST 61 H (14-36) U/L ALT 49 (9-52) U/L Alkaline Phosphatase 56 (38-126) U/L Total Creatine Kinase 68 (30-135) U/L CK-MB (Mass) 0.92 (0.0-3.38) ng/mL Troponin I 0.0200 (0.00-0.120) ng/mL NT-Pro-B Natriuret Pep (0-900) pg/mL Total Protein 6.4 (6.3-8.3) g/dL Albumin 3.1 L (3.5-5.0) g/dL Globulin 3.3 (2.2-3.9) gm/dL Albumin/Globulin Ratio 0.9 L (1.0-2.1) Urine Color Yellow (YELLOW) Urine Clarity Hazy (Clear) Urine pH 5.0 (5.0-8.0) Ur Specific [place] 1.012 (1.003-1.030) Urine Protein 1+ H (NEGATIVE) mg/dL Urine Glucose (UA) Normal (Normal) mg/dL Urine Ketones Negative (NEGATIVE) mg/dL Urine Blood 1+ H (NEGATIVE) Urine Nitrate Negative (NEGATIVE) Urine Bilirubin Negative (NEGATIVE) Urine Urobilinogen 2.0 H (0.2-1.0) mg/dL Ur Leukocyte Esterase Neg (Negative) Yonathan/uL Urine WBC (Auto) 4 (0-5) /hpf Urine RBC (Auto) 10 H (0-3) /hpf Ur Squamous Epith Cells 5 (0-5) /hpf Hyaline Casts 0-2 (0-2) /lpf 10/23/17 10/23/17 10/23/17 Range/Units 16:28 16:28 16:28 WBC 5.3 (4.8-10.8) K/uL RBC 3.68 L (3.80-5.20) Mil/uL Hgb 11.2 (11.0-16.0) g/dL Hct 33.1 L (34.0-47.0) % MCV 90.0 (81.0-99.0) fL MCH 30.5 (27.0-31.0) pg MCHC 33.9 (33.0-37.0) g/dL RDW 13.2 (11.5-14.5) % Plt Count 136 (130-400) K/uL MPV 11.8 H (7.2-11.7) fL Neut % (Auto) 66.0 (50.0-75.0) % Lymph % (Auto) 21.5 (20.0-40.0) % [place] % (Auto) 11.1 H (0.0-10.0) % Eos % (Auto) 0.6 (0.0-4.0) % Baso % (Auto) 0.8 (0.0-2.0) % Neut # (Auto) 3.5 (1.8-7.0) K/uL Lymph # (Auto) 1.1 (1.0-4.3) K/uL [place] # (Auto) 0.6 (0.0-0.8) K/uL Eos # (Auto) 0.0 (0.0-0.7) K/uL Baso # (Auto) 0.0 (0.0-0.2) K/uL Differential Comment PT 13.8 H (9.7-12.2) SECONDS INR 1.2 APTT 31 (21-34) SECONDS Sodium 146 (132-148) mmol/L Potassium 3.3 L (3.6-5.2) mmol/L Chloride 111 H (98-107) mmol/L Carbon Dioxide 22 (22-30) mmol/L Anion Gap 16 (10-20) BUN 15 (7-17) mg/dL Creatinine 1.1 (0.7-1.2) mg/dL Est GFR ( Amer) 58 Est GFR (Non-Af Amer) 48 Random Glucose 168 H (65-105) mg/dL Calcium 8.5 L (8.6-10.4) mg/dl Phosphorus (2.5-4.5) mg/dL Magnesium 1.9 (1.6-2.3) mg/dL Total Bilirubin 0.9 (0.2-1.3) mg/dL AST 65 H (14-36) U/L ALT 56 H (9-52) U/L Alkaline Phosphatase 55 (38-126) U/L Total Creatine Kinase (30-135) U/L CK-MB (Mass) (0.0-3.38) ng/mL Troponin I < 0.0120 (0.00-0.120) ng/mL NT-Pro-B Natriuret Pep 5150 H (0-900) pg/mL Total Protein 6.9 (6.3-8.3) g/dL Albumin 3.4 L (3.5-5.0) g/dL Globulin 3.5 (2.2-3.9) gm/dL Albumin/Globulin Ratio 1.0 (1.0-2.1) Urine Color (YELLOW) Urine Clarity (Clear) Urine pH (5.0-8.0) Ur Specific [place] (1.003-1.030) Urine Protein (NEGATIVE) mg/dL Urine Glucose (UA) (Normal) mg/dL Urine Ketones (NEGATIVE) mg/dL Urine Blood (NEGATIVE) Urine Nitrate (NEGATIVE) Urine Bilirubin (NEGATIVE) Urine Urobilinogen (0.2-1.0) mg/dL Ur Leukocyte Esterase (Negative) Yonathan/uL Urine WBC (Auto) (0-5) /hpf Urine RBC (Auto) (0-3) /hpf Ur Squamous Epith Cells (0-5) /hpf Hyaline Casts (0-2) /lpf Laboratory Results - last 24 hr 10/23/17 10/23/17 10/23/17 16:28 16:28 16:28 WBC 5.3 RBC 3.68 L Hgb 11.2 Hct 33.1 L MCV 90.0 MCH 30.5 MCHC 33.9 RDW 13.2 Plt Count 136 MPV 11.8 H Neut % (Auto) 66.0 Lymph % (Auto) 21.5 [place] % (Auto) 11.1 H Eos % (Auto) 0.6 Baso % (Auto) 0.8 Neut # (Auto) 3.5 Lymph # (Auto) 1.1 [place] # (Auto) 0.6 Eos # (Auto) 0.0 Baso # (Auto) 0.0 Differential Comment PT 13.8 H INR 1.2 APTT 31 Sodium 146 Potassium 3.3 L Chloride 111 H Carbon Dioxide 22 Anion Gap 16 BUN 15 Creatinine 1.1 Est GFR ( Amer) 58 Est GFR (Non-Af Amer) 48 Random Glucose 168 H Calcium 8.5 L Phosphorus Magnesium 1.9 Total Bilirubin 0.9 AST 65 H ALT 56 H Alkaline Phosphatase 55 Total Creatine Kinase CK-MB (Mass) Troponin I < 0.0120 NT-Pro-B Natriuret Pep 5150 H Total Protein 6.9 Albumin 3.4 L Globulin 3.5 Albumin/Globulin Ratio 1.0 Urine Color Urine Clarity Urine pH Ur Specific [place] Urine Protein Urine Glucose (UA) Urine Ketones Urine Blood Urine Nitrate Urine Bilirubin Urine Urobilinogen Ur Leukocyte Esterase Urine WBC (Auto) Urine RBC (Auto) Ur Squamous Epith Cells Hyaline Casts 10/23/17 10/24/17 10/24/17 18:28 05:56 05:56 WBC 6.5 RBC 3.47 L Hgb 10.6 L Hct 31.3 L MCV 90.3 MCH 30.5 MCHC 33.8 RDW 13.5 Plt Count 125 L MPV 12.8 H Neut % (Auto) 55.5 Lymph % (Auto) 30.9 [place] % (Auto) 12.4 H Eos % (Auto) 0.5 Baso % (Auto) 0.7 Neut # (Auto) 3.6 Lymph # (Auto) 2.0 [place] # (Auto) 0.8 Eos # (Auto) 0.0 Baso # (Auto) 0.0 Differential Comment PT INR APTT Sodium 145 Potassium 3.2 L Chloride 109 H Carbon Dioxide 23 Anion Gap 17 BUN 15 Creatinine 1.0 Est GFR ( Amer) > 60 Est GFR (Non-Af Amer) 53 Random Glucose 87 Calcium 8.9 Phosphorus 4.1 Magnesium 1.8 Total Bilirubin 0.9 AST 61 H ALT 49 Alkaline Phosphatase 56 Total Creatine Kinase 68 CK-MB (Mass) 0.92 Troponin I 0.0200 NT-Pro-B Natriuret Pep Total Protein 6.4 Albumin 3.1 L Globulin 3.3 Albumin/Globulin Ratio 0.9 L Urine Color Yellow Urine Clarity Hazy Urine pH 5.0 Ur Specific [place] 1.012 Urine Protein 1+ H Urine Glucose (UA) Normal Urine Ketones Negative Urine Blood 1+ H Urine Nitrate Negative Urine Bilirubin Negative Urine Urobilinogen 2.0 H Ur Leukocyte Esterase Neg Urine WBC (Auto) 4 Urine RBC (Auto) 10 H Ur Squamous Epith Cells 5 Hyaline Casts 0-2 EKG/Cardiology Studies: Cardiology / EKG Studies 10/23/17 16:00 EKG [ELECTROCARDIOGRAM] Stat Comment: Mode Of Transportation: Reason For Exam: SOB, BRADYCARDIA 10/23/17 19:31 EKG [ELECTROCARDIOGRAM] Stat Comment: Mode Of Transportation: Reason For Exam: repeat 10/24/17 09:20 EKG [ELECTROCARDIOGRAM] Routine Comment: Mode Of Transportation: Reason For Exam: av block Critical Care Progress Note - Nutrition Nutrition: Nutrition Category Date Time Status Heart Healthy Diet [DIET] Diets 10/24/17 Breakfast Active Assessment/Plan - Assessment and Plan (Free Text) Assessment: This is an 81 year old female with PMHx HTN who was admitted to ICU for AV disassociation heart block. QRS complexes are at regular intervals at this time. Neuro Awake, Verbal Cardio Norvasc 5 mg PO daily Lasix 40 mg IV Q12H Cardiology and Electrophysiology consulted Will likely need cardiac catheterization and then PPM placement Pulm Saturating well on nasal cannula Lasix ordered to help with pleural effusions GI Heart Healthy Diet Pepcid 20 mg IV daily Prophylaxis Pepcid 20 mg IV daily Lovenox 40 mg SC daily Discussed with Dr. Mendez <Marisa Mendez - Last Filed: 10/31/17 08:55> Critical Care Progress Note - Nutrition Nutrition: Nutrition Category Date Time Status Heart Healthy Diet [DIET] Diets 10/25/17 Dinner Active Attending/Attestation - Attestation I have personally seen and examined this patient.: Yes I have fully participated in the care of the patient.: Yes I have reviewed all pertinent clinical information: Yes
[2017-10-24] MEDS: Enoxaparin 40 mg Syringe SC SCH (13:35)
[2017-10-24 13:58] LABS: CK-MB 0.87 ng/mL (0.0-3.38); TROPONIN I 0.012 ng/mL (0.00-0.120)
--- NOTE | 2017-10-24 14:38 | CP.PCM.PN ---
Subjective - Date & Time of Evaluation Date of Evaluation: 10/24/17 Time of Evaluation: 02:30 - Subjective Subjective: Patient was seen and examined by me. She was pleasant affect and not in any distress. The patient has multiple 12 lead EKGs which show 3 degree block. She also has had a CT scan - it shows a pleural effusion for which she is being given lasix for. The patient just had echo earlier this morning. She will likely need a PPM. Currently has the transcutanous pacer pads on at this moment. Objective - Vital Signs/Intake and Output Vital Signs (last 24 hours): Temp Pulse Resp BP Pulse Ox 99.4 F 44 L 17 136/57 L 96 10/24/17 08:00 10/24/17 07:58 10/24/17 07:58 10/24/17 07:58 10/24/17 07:58 Intake and Output: 10/24/17 10/24/17 06:59 18:59 Intake Total 0 150 Output Total 2440 Balance -2440 150 - Medications Medications: Current Medications Amlodipine Besylate (Norvasc) 5 mg PO DAILY [facility] Last Admin: 10/24/17 13:34 Dose: 5 mg Enoxaparin Sodium (Lovenox) 40 mg SC DAILY [facility] Last Admin: 10/24/17 13:35 Dose: Not Given Famotidine (Pepcid) 20 mg IVP DAILY [facility] Last Admin: 10/24/17 09:59 Dose: 20 mg Furosemide (Lasix) 40 mg IVP Q12H [facility] Last Admin: 10/24/17 07:25 Dose: 40 mg Pneumococcal Polyvalent Vaccine (Pneumovax 23 Vaccine) 0.5 ml IM .ONCE ONE Stop: 10/25/17 10:01 - Labs Labs: 10/24/17 05:56 10/24/17 05:56 PT 13.8 SECONDS (9.7-12.2) H 10/23/17 16:28 INR 1.2 10/23/17 16:28 APTT 31 SECONDS (21-34) 10/23/17 16:28 - Constitutional Appears: No Acute Distress, Confused, Chronically Ill - Head Exam Head Exam: NORMAL INSPECTION, NORMOCEPHALIC - Eye Exam Eye Exam: EOMI, Normal appearance - ENT Exam ENT Exam: Mucous Membranes Moist - GI/Abdominal Exam GI & Abdominal Exam: Soft, Normal Bowel Sounds - Neurological Exam Neurological Exam: Alert, Awake Neuro motor strength exam: Left Upper Extremity: 4, Right Upper Extremity: 4 - Psychiatric Exam Psychiatric exam: Normal Affect, Normal Mood - Skin Skin Exam: Normal Color, Warm Assessment and Plan - Assessment and Plan (Free Text) Assessment: 3rd degree AV block 10/24: There are several 12 leads with the block. Echo was done earlier this AM. Lab work is stable at this moment. The troponins will be negative x 3 Cardiology consulted, Dr. Lovelace EP station jailer, DR Anderson consulted EKrd degree heart block - pwave/qrs dissociation; Vent rhythm 44; Likely will need pacemaker, cardiac cath CHF exacerbation 10/24: The patient dpes have a moderate pleural effusion as well. On Lasix BID BNP 5100 Echo was completed. Anasarca From CHF Exacerbation, albumin 3.1 Checking a urine protein Hypertension Norvasc 5mg Electrolyte abnormality K 3.2 on AM labs
--- NOTE | 2017-10-25 00:53 | CARD ---
APPROVED REPORT EXAM: Two-dimensional and M-mode echocardiogram with Doppler and color Doppler. Other Information Quality : GoodRhythm : INDICATION Congestive Heart Failure RISK FACTORS Hypertension 2D DIMENSIONS IVSd0.7 (0.7-1.1cm)LVDd3.9 (3.9-5.9cm) PWd0.8 (0.7-1.1cm)LVDs2.8 (2.5-4.0cm) FS (%) 27.1 %LVEF (%)65.0 (>50%) M-Mode DIMENSIONS RVDd1.80 (2.1-3.2cm)Left Atrium (MM)3.22 (2.5-4.0cm) IVSd0.90 (0.7-1.1cm)Aortic Root2.67 (2.2-3.7cm) LVDd4.12 (4.0-5.6cm)Aortic Cusp Exc.1.83 (1.5-2.0cm) PWd0.90 (0.7-1.1cm)FS (%) 58 % LVDs1.75 (2.0-3.8cm)LVEF (%)88 (>50%) Aortic Valve AoV Peak Dhkxbkgp660.1cm/sAoV VTI44.8cmAO Peak GR.20mmHg LVOT Peak Eyrzwwov807.2cm/sLVOT VTI40.28cmAO Mean GR.8mmHg AI P 1/2 [id number] Mitral Valve MV E Ntjgiert16.8cm/sMV A Odiutjpp21.3cm/sE/A ratio0.8 TDI E/Lateral E'0.0E/Medial E'0.0 Tricuspid Valve TR Peak Dsjkfhul432zc/sTR Peak Gr.88yyRsJNIO87mgUe LEFT VENTRICLE The left ventricle is normal size. There is normal left ventricular wall thickness. Left ventricle systolic function is normal. The Ejection Fraction is >70%. There is normal LV segmental wall motion. The left ventricular diastolic function is normal. There is no ventricular septal defect visualized. RIGHT VENTRICLE The right ventricle is mildly dilated. The right ventricle is mildly hypertrophied. The right ventricular systolic function is normal. ATRIA The left atrium is mildly dilated. The right atrium is mildly dilated. AORTIC VALVE The aortic valve is mildly sclerotic. The aortic valve is tri-cuspid. There is moderate aortic regurgitation. There is no aortic valvular stenosis. MITRAL VALVE The mitral valve is normal in structure. There is no evidence of mitral valve prolapse. Mitral regurgitation is moderate. ERO 0.6 cm. TRICUSPID VALVE The tricuspid valve is normal in structure. There is moderate tricuspid regurgitation. Right ventricular systolic pressure is estimated at 50-60 mmHg. There is moderate-severe pulmonary hypertension. PULMONIC VALVE The pulmonic valve is not well visualized. There is trace pulmonic valvular regurgitation. GREAT VESSELS The aortic root is normal in size. The ascending aorta is normal in size. The IVC is dilated. PERICARDIAL EFFUSION There is no pericardial effusion. <Conclusion> Left ventricle systolic function is normal. The Ejection Fraction is >70%. The left ventricular diastolic function is normal. There is moderate aortic regurgitation. Mitral regurgitation is moderate. ERO 0.6 cm. There is moderate-severe pulmonary hypertension.
--- NOTE | 2017-10-25 02:00 | CARD ---
APPROVED REPORT EKG Measurement Heart [id number] [place] P42 [id number] <Conclusion> Sinus bradycardia with 2nd degree AV block type I Cannot rule out Anterior infarct, age undetermined Abnormal ECG
--- NOTE | 2017-10-25 02:02 | CARD ---
APPROVED REPORT EKG Measurement Heart [id number] [place] P43 [id number] <Conclusion> Sinus bradycardia with 2d degree AV block type I Cannot rule out Anterior infarct, age undetermined Abnormal ECG
[2017-10-25 06:19] LABS: BASO # 0.1 K/uL (0.0-0.2); BASO % 0.8 % (0.0-2.0); EOS # 0.1 K/uL (0.0-0.7); EOS % 1.5 % (0.0-4.0); HEMOGLOBIN 10.7 g/dL (11.0-16.0); LYMPH # 2.3 K/uL (1.0-4.3); LYMPH % 35.4 % (20.0-40.0); MEAN CELL VOLUME 89.9 fL (81.0-99.0); MEAN CORPUSCULAR HEMOGLOBIN 30.8 pg (27.0-31.0); MEAN CORPUSCULAR HGB CONC 34.3 g/dL (33.0-37.0); MEAN PLATELET VOLUME 12.4 fL (7.2-11.7); MONO # 0.7 K/uL (0.0-0.8); MONO % 10.4 % (0.0-10.0); NEUT # 3.4 K/uL (1.8-7.0); NEUT % 51.9 % (50.0-75.0); NRBC % 0.1 % (0.0-2.0); RBC 3.48 Mil/uL (3.80-5.20); RED CELL DISTRIBUTION WIDTH 13.3 % (11.5-14.5); WHITE BLOOD COUNT 6.5 K/uL (4.8-10.8)
[2017-10-25 06:40] LABS: ALB/GLOB RATIO 0.9 (1.0-2.1); CALCIUM 8.5 mg/dl (8.6-10.4)
[2017-10-25] MEDS: Magnesium Sulfate 1 gm in D5W 1 GM/100 ML BAG IVPB SCH ×2 (08:05→09:12)
--- NOTE | 2017-10-25 08:42 | CP.CCUPN ---
<Dave Castro - Last Filed: 10/25/17 10:46> CCU Subjective - Physician Review Subjective (Free Text): 10/24/17 10:52 Patient seen and examined. Patient states that she does not have any complaints at this time. She is breathing well and does not feel dizzy or weak at this time. 10/25/17 08:41 Patient seen and examined. Patient has no complaints at this time and is resting comfortably. CCU Objective - Vital Signs / Intake & Output Vital Signs (Last 4 hours): Vital Signs BP 10/25/17 08:05 132/54 L Intake and Output (Last 8hrs): Intake & Output 10/24/17 10/25/17 10/25/17 22:59 06:59 14:59 Intake Total 350 0 0 Output Total 1115 705 30 Balance -765 -705 -30 Weight 110 lb 6.4 oz Intake: Oral 350 0 0 Output: Urine 1115 705 30 Urethral ([place]) 1115 705 30 Other: # Bowel Movements 0 0 0 - Physical Exam Head: Positive for: Atraumatic, Normocephalic Pupils: Positive for: PERRL Extroacular Muscles: Positive for: EOMI Conjunctiva: Positive for: Normal Mouth: Positive for: Moist Mucous Membranes Respiratory/Chest: Positive for: Clear to Auscultation. Negative for: Wheezes, Rales, Rhonchi Cardiovascular: Positive for: Normal S1, S2, Bradycardic Abdomen: Positive for: Normal Bowel Sounds. Negative for: Tenderness, Distention Upper Extremity: Positive for: Normal Inspection Lower Extremity: Positive for: Normal Inspection Neurological: Positive for: GCS=15 Skin: Positive for: Warm, Dry Psychiatric: Positive for: Alert - Medications Active Medications: Active Medications Generic Name Dose Route Start Last Admin Trade Name Freq PRN Reason Stop Dose Admin Amlodipine Besylate 5 mg 10/24/17 10:00 10/24/17 13:34 Norvasc PO 5 mg DAILY ALVIN Administration Enoxaparin Sodium 40 mg 10/24/17 10:00 10/24/17 13:35 Lovenox SC Not Given DAILY ALVIN Famotidine 20 mg 10/24/17 10:00 10/24/17 09:59 Pepcid IVP 20 mg DAILY ALVIN Administration Furosemide 40 mg 10/24/17 08:00 10/25/17 08:05 Lasix IVP 40 mg Q12H ALVIN Administration Magnesium Sulfate/Dextrose 1 gm in 100 mls @ 100 mls/hr 10/25/17 08:00 08:05 Magnesium Sulfate 1 Gm/100 Ml D5w IVPB 10/25/17 09:59 100 mls/hr Q1H ALVIN Administration Pneumococcal Polyvalent Vaccine 0.5 ml 10/25/17 10:00 Pneumovax 23 Vaccine IM 10/25/17 10:01 .ONCE ONE - Patient Studies Lab Studies: Lab Studies 10/25/17 10/25/17 10/24/17 Range/Units 06:14 06:12 13:32 WBC 6.5 (4.8-10.8) K/uL RBC 3.48 L (3.80-5.20) Mil/uL Hgb 10.7 L (11.0-16.0) g/dL Hct 31.3 L (34.0-47.0) % MCV 89.9 (81.0-99.0) fL MCH 30.8 (27.0-31.0) pg MCHC 34.3 (33.0-37.0) g/dL RDW 13.3 (11.5-14.5) % Plt Count 110 L (130-400) K/uL MPV 12.4 H (7.2-11.7) fL Neut % (Auto) 51.9 (50.0-75.0) % Lymph % (Auto) 35.4 (20.0-40.0) % [place] % (Auto) 10.4 H (0.0-10.0) % Eos % (Auto) 1.5 (0.0-4.0) % Baso % (Auto) 0.8 (0.0-2.0) % Neut # (Auto) 3.4 (1.8-7.0) K/uL Lymph # (Auto) 2.3 (1.0-4.3) K/uL [place] # (Auto) 0.7 (0.0-0.8) K/uL Eos # (Auto) 0.1 (0.0-0.7) K/uL Baso # (Auto) 0.1 (0.0-0.2) K/uL Differential Comment Sodium 141 (132-148) mmol/L Potassium 3.7 (3.6-5.2) mmol/L Chloride 103 (98-107) mmol/L Carbon Dioxide 27 (22-30) mmol/L Anion Gap 15 (10-20) BUN 14 (7-17) mg/dL Creatinine 1.1 (0.7-1.2) mg/dL Est GFR ( Amer) 58 Est GFR (Non-Af Amer) 48 Random Glucose 81 (65-105) mg/dL Calcium 8.5 L (8.6-10.4) mg/dl Phosphorus 4.4 (2.5-4.5) mg/dL Magnesium 1.4 L (1.6-2.3) mg/dL Total Bilirubin 0.8 (0.2-1.3) mg/dL AST 50 H (14-36) U/L ALT 39 (9-52) U/L Alkaline Phosphatase 47 (38-126) U/L Total Creatine Kinase 70 (30-135) U/L CK-MB (Mass) 0.87 (0.0-3.38) ng/mL Troponin I 0.0120 (0.00-0.120) ng/mL Total Protein 6.2 L (6.3-8.3) g/dL Albumin 3.0 L (3.5-5.0) g/dL Globulin 3.2 (2.2-3.9) gm/dL Albumin/Globulin Ratio 0.9 L (1.0-2.1) 10/24/17 Range/Units 05:56 WBC 6.5 (4.8-10.8) K/uL RBC 3.47 L (3.80-5.20) Mil/uL Hgb 10.6 L (11.0-16.0) g/dL Hct 31.3 L (34.0-47.0) % MCV 90.3 (81.0-99.0) fL MCH 30.5 (27.0-31.0) pg MCHC 33.8 (33.0-37.0) g/dL RDW 13.5 (11.5-14.5) % Plt Count 125 L (130-400) K/uL MPV 12.8 H (7.2-11.7) fL Neut % (Auto) 55.5 (50.0-75.0) % Lymph % (Auto) 30.9 (20.0-40.0) % [place] % (Auto) 12.4 H (0.0-10.0) % Eos % (Auto) 0.5 (0.0-4.0) % Baso % (Auto) 0.7 (0.0-2.0) % Neut # (Auto) 3.6 (1.8-7.0) K/uL Lymph # (Auto) 2.0 (1.0-4.3) K/uL [place] # (Auto) 0.8 (0.0-0.8) K/uL Eos # (Auto) 0.0 (0.0-0.7) K/uL Baso # (Auto) 0.0 (0.0-0.2) K/uL Differential Comment Sodium (132-148) mmol/L Potassium (3.6-5.2) mmol/L Chloride (98-107) mmol/L Carbon Dioxide (22-30) mmol/L Anion Gap (10-20) BUN (7-17) mg/dL Creatinine (0.7-1.2) mg/dL Est GFR ( Amer) Est GFR (Non-Af Amer) Random Glucose (65-105) mg/dL Calcium (8.6-10.4) mg/dl Phosphorus (2.5-4.5) mg/dL Magnesium (1.6-2.3) mg/dL Total Bilirubin (0.2-1.3) mg/dL AST (14-36) U/L ALT (9-52) U/L Alkaline Phosphatase (38-126) U/L Total Creatine Kinase (30-135) U/L CK-MB (Mass) (0.0-3.38) ng/mL Troponin I (0.00-0.120) ng/mL Total Protein (6.3-8.3) g/dL Albumin (3.5-5.0) g/dL Globulin (2.2-3.9) gm/dL Albumin/Globulin Ratio (1.0-2.1) Laboratory Results - last 24 hr 10/24/17 10/24/17 10/25/17 05:56 13:32 06:12 WBC 6.5 6.5 RBC 3.47 L 3.48 L Hgb 10.6 L 10.7 L Hct 31.3 L 31.3 L MCV 90.3 89.9 MCH 30.5 30.8 MCHC 33.8 34.3 RDW 13.5 13.3 Plt Count 125 L 110 L MPV 12.8 H 12.4 H Neut % (Auto) 55.5 51.9 Lymph % (Auto) 30.9 35.4 [place] % (Auto) 12.4 H 10.4 H Eos % (Auto) 0.5 1.5 Baso % (Auto) 0.7 0.8 Neut # (Auto) 3.6 3.4 Lymph # (Auto) 2.0 2.3 [place] # (Auto) 0.8 0.7 Eos # (Auto) 0.0 0.1 Baso # (Auto) 0.0 0.1 Differential Comment Sodium Potassium Chloride Carbon Dioxide Anion Gap BUN Creatinine Est GFR ( Amer) Est GFR (Non-Af Amer) Random Glucose Calcium Phosphorus Magnesium Total Bilirubin AST ALT Alkaline Phosphatase Total Creatine Kinase 70 CK-MB (Mass) 0.87 Troponin I 0.0120 Total Protein Albumin Globulin Albumin/Globulin Ratio 10/25/17 06:14 WBC RBC Hgb Hct MCV MCH MCHC RDW Plt Count MPV Neut % (Auto) Lymph % (Auto) [place] % (Auto) Eos % (Auto) Baso % (Auto) Neut # (Auto) Lymph # (Auto) [place] # (Auto) Eos # (Auto) Baso # (Auto) Differential Comment Sodium 141 Potassium 3.7 Chloride 103 Carbon Dioxide 27 Anion Gap 15 BUN 14 Creatinine 1.1 Est GFR ( Amer) 58 Est GFR (Non-Af Amer) 48 Random Glucose 81 Calcium 8.5 L Phosphorus 4.4 Magnesium 1.4 L Total Bilirubin 0.8 AST 50 H ALT 39 Alkaline Phosphatase 47 Total Creatine Kinase CK-MB (Mass) Troponin I Total Protein 6.2 L Albumin 3.0 L Globulin 3.2 Albumin/Globulin Ratio 0.9 L EKG/Cardiology Studies: Cardiology / EKG Studies 10/24/17 09:20 EKG [ELECTROCARDIOGRAM] Routine Comment: Mode Of Transportation: Reason For Exam: av block Critical Care Progress Note - Nutrition Nutrition: Nutrition Category Date Time Status NPO Diet [DIET] Diets 10/25/17 Breakfast Active Assessment/Plan - Assessment and Plan (Free Text) Assessment: This is an 81 year old female with PMHx HTN who was admitted to ICU for AV disassociation heart block. QRS complexes are at regular intervals at this time. Patient is NPO for pacemaker placement today. Neuro Awake, Verbal Cardio Norvasc 5 mg PO daily Lasix 40 mg IV Q12H Cardiology and Electrophysiology consulted Needs PPM placement Pulm Saturating well on nasal cannula Lasix ordered to help with pleural effusions GI NPO Diet for procedure Pepcid 20 mg IV daily Prophylaxis Pepcid 20 mg IV daily Lovenox 40 mg SC daily--held for pacemaker today Discussed with Dr. Liz <Chaitanya Liz - Last Filed: 10/25/17 16:41> CCU Objective - Vital Signs / Intake & Output Vital Signs (Last 4 hours): Vital Signs Temp Pulse Resp BP Pulse Ox 10/25/17 16:11 87 22 132/68 100 10/25/17 16:00 85 20 99 10/25/17 15:48 85 18 155/77 H 99 10/25/17 15:29 95 H 22 139/74 100 10/25/17 15:08 83 16 139/68 99 10/25/17 15:05 92 H 16 144/86 100 10/25/17 15:00 97.6 F 10/25/17 14:50 97 H 16 118/72 93 L Intake and Output (Last 8hrs): Intake & Output 10/25/17 10/25/17 10/25/17 06:59 14:59 22:59 Intake Total 0 550 Output Total 705 1080 200 Balance -705 -530 -200 Weight 110 lb 6.4 oz Intake: IV 300 Intake, IV Amount 200 Left Forearm 200 Oral 0 50 Output: Urine 705 1080 200 Urethral ([place]) 705 1080 200 Other: # Bowel Movements 0 0 - Medications Active Medications: Active Medications Generic Name Dose Route Start Last Admin Trade Name Freq PRN Reason Stop Dose Admin Amlodipine Besylate 5 mg 10/24/17 10:00 10/25/17 09:13 Norvasc PO 5 mg DAILY ALVIN Administration Famotidine 20 mg 10/24/17 10:00 10/25/17 09:12 Pepcid IVP 20 mg DAILY ALVIN Administration Furosemide 40 mg 10/24/17 08:00 10/25/17 08:05 Lasix IVP 40 mg Q12H ALVIN Administration Cefazolin Sodium 1 gm/ Sodium 100 mls @ 100 mls/hr 10/25/17 19:30 Chloride IVPB Q8H [facility] Protocol - Patient Studies Lab Studies: Microbiology Studies 10/23/17 21:49 MRSA Culture (Admit) - Final Nose MRSA NOT DETECTED 10/23/17 21:55 Urine Culture - Final Urine,Catheterized No Growth (<1,000 CFU/ML) Lab Studies 10/25/17 10/25/17 Range/Units 06:14 06:12 WBC 6.5 (4.8-10.8) K/uL RBC 3.48 L (3.80-5.20) Mil/uL Hgb 10.7 L (11.0-16.0) g/dL Hct 31.3 L (34.0-47.0) % MCV 89.9 (81.0-99.0) fL MCH 30.8 (27.0-31.0) pg MCHC 34.3 (33.0-37.0) g/dL RDW 13.3 (11.5-14.5) % Plt Count 110 L (130-400) K/uL MPV 12.4 H (7.2-11.7) fL Neut % (Auto) 51.9 (50.0-75.0) % Lymph % (Auto) 35.4 (20.0-40.0) % [place] % (Auto) 10.4 H (0.0-10.0) % Eos % (Auto) 1.5 (0.0-4.0) % Baso % (Auto) 0.8 (0.0-2.0) % Neut # (Auto) 3.4 (1.8-7.0) K/uL Lymph # (Auto) 2.3 (1.0-4.3) K/uL [place] # (Auto) 0.7 (0.0-0.8) K/uL Eos # (Auto) 0.1 (0.0-0.7) K/uL Baso # (Auto) 0.1 (0.0-0.2) K/uL Sodium 141 (132-148) mmol/L Potassium 3.7 (3.6-5.2) mmol/L Chloride 103 (98-107) mmol/L Carbon Dioxide 27 (22-30) mmol/L Anion Gap 15 (10-20) BUN 14 (7-17) mg/dL Creatinine 1.1 (0.7-1.2) mg/dL Est GFR ( Amer) 58 Est GFR (Non-Af Amer) 48 Random Glucose 81 (65-105) mg/dL Calcium 8.5 L (8.6-10.4) mg/dl Phosphorus 4.4 (2.5-4.5) mg/dL Magnesium 1.4 L (1.6-2.3) mg/dL Total Bilirubin 0.8 (0.2-1.3) mg/dL AST 50 H (14-36) U/L ALT 39 (9-52) U/L Alkaline Phosphatase 47 (38-126) U/L Total Protein 6.2 L (6.3-8.3) g/dL Albumin 3.0 L (3.5-5.0) g/dL Globulin 3.2 (2.2-3.9) gm/dL Albumin/Globulin Ratio 0.9 L (1.0-2.1) Laboratory Results - last 24 hr 10/25/17 10/25/17 06:12 06:14 WBC 6.5 RBC 3.48 L Hgb 10.7 L Hct 31.3 L MCV 89.9 MCH 30.8 MCHC 34.3 RDW 13.3 Plt Count 110 L MPV 12.4 H Neut % (Auto) 51.9 Lymph % (Auto) 35.4 [place] % (Auto) 10.4 H Eos % (Auto) 1.5 Baso % (Auto) 0.8 Neut # (Auto) 3.4 Lymph # (Auto) 2.3 [place] # (Auto) 0.7 Eos # (Auto) 0.1 Baso # (Auto) 0.1 Sodium 141 Potassium 3.7 Chloride 103 Carbon Dioxide 27 Anion Gap 15 BUN 14 Creatinine 1.1 Est GFR ( Amer) 58 Est GFR (Non-Af Amer) 48 Random Glucose 81 Calcium 8.5 L Phosphorus 4.4 Magnesium 1.4 L Total Bilirubin 0.8 AST 50 H ALT 39 Alkaline Phosphatase 47 Total Protein 6.2 L Albumin 3.0 L Globulin 3.2 Albumin/Globulin Ratio 0.9 L Critical Care Progress Note - Nutrition Nutrition: Nutrition Category Date Time Status Heart Healthy Diet [DIET] Diets 10/25/17 Dinner Active Attending/Attestation - Attestation I have personally seen and examined this patient.: Yes I have fully participated in the care of the patient.: Yes I have reviewed all pertinent clinical information: Yes Notes (Text): 10/25/17 16:41 Patient seen and examined Status post permanent pacemaker insertion Continue present treatment for now
[2017-10-25] MEDS: Enoxaparin 40 mg Syringe SC SCH (09:20)
[2017-10-25] MEDS ORDERED: Pneumococcal 23-Valent Vaccine IM ONE (10:00)
[2017-10-25] MEDS ORDERED: Lidocaine Hydrochloride 10 ML INJ ONE (10:58)
[2017-10-25] MEDS ORDERED: Iohexol 240 (50 ml) ONE (10:58)
[2017-10-25] MEDS ORDERED: Thrombin Topical 5,000 Int Units Spray Kit ONE (10:58)
[2017-10-25] MEDS ORDERED: ceFAZolin 1 gm in NS 1 GM/100 ML BAG IVPB ONE (10:59)
[2017-10-25] MEDS ORDERED: Bacitracin 50,000 UNIT in Sodium Chloride 0.9% Irrig 1,000 ML IR SCH (11:00)
--- NOTE | 2017-10-25 12:31 | CARD ---
APPROVED REPORT EKG Measurement Heart [id number] [place] P38 [id number] <Conclusion> Sinus bradycardia with AV dissociation and Junctional rhythm with sinus/atrial capture Low voltage QRS Abnormal ECG
--- NOTE | 2017-10-25 12:42 | CP.PCM.PN ---
Subjective - Date & Time of Evaluation Date of Evaluation: 10/25/17 Time of Evaluation: 12:00 - Subjective Subjective: Patient was seen and examined by me Family member was present at bedside The patient was not in any acute distress. From what I understand she will be going some time this afternoon to OR for placment of [facility]. The patient denied shortness of breath, denied chest pain, denied dizziness. On telemetry HR is in the 40s and she is in what looks like 3rd degree block. She has the pacer pads on her in case she becomes unstable Objective - Vital Signs/Intake and Output Vital Signs (last 24 hours): Temp Pulse Resp BP Pulse Ox 98.2 F 83 16 130/45 L 99 10/25/17 12:00 10/25/17 12:00 10/25/17 12:00 10/25/17 11:59 10/25/17 12:00 Intake and Output: 10/25/17 10/25/17 06:59 18:59 Intake Total 350 250 Output Total 1320 1280 Balance -970 -1030 - Medications Medications: Current Medications Amlodipine Besylate (Norvasc) 5 mg PO DAILY [facility] Last Admin: 10/25/17 09:13 Dose: 5 mg Famotidine (Pepcid) 20 mg IVP DAILY [facility] Last Admin: 10/25/17 09:12 Dose: 20 mg Furosemide (Lasix) 40 mg IVP Q12H [facility] Last Admin: 10/25/17 08:05 Dose: 40 mg - Labs Labs: 10/25/17 06:12 10/25/17 06:14 PT 13.8 SECONDS (9.7-12.2) H 10/23/17 16:28 INR 1.2 10/23/17 16:28 APTT 31 SECONDS (21-34) 10/23/17 16:28 - Constitutional Appears: No Acute Distress, Unkempt - Head Exam Head Exam: NORMAL INSPECTION, NORMOCEPHALIC - Eye Exam Eye Exam: EOMI, Normal appearance - Respiratory Exam Respiratory Exam: Clear to Ausculation Bilateral, NORMAL BREATHING PATTERN - Cardiovascular Exam Cardiovascular Exam: Bradycardia, Irregular Rhythm - GI/Abdominal Exam GI & Abdominal Exam: Soft, Normal Bowel Sounds - Neurological Exam Neurological Exam: Alert, Awake, Oriented x3 Neuro motor strength exam: Left Upper Extremity: 4, Right Upper Extremity: 4 - Psychiatric Exam Psychiatric exam: Normal Affect, Normal Mood - Skin Skin Exam: Normal Color, Warm Assessment and Plan - Assessment and Plan (Free Text) Assessment: 3rd degree AV block 10/25: Later today going to the OR 10/24: There are several 12 leads with the block. Echo was done earlier this AM. Lab work is stable at this moment. The troponins will be negative x 3 Cardiology consulted, Dr. Lovelace EP user experience lead, DR Anderson consulted EKrd degree heart block - pwave/qrs dissociation; Vent rhythm 44; Likely will need pacemaker, cardiac cath CHF exacerbation 10/25: Continue with lasix, the weight has decreased to 110 lbs 10/24: The patient dpes have a moderate pleural effusion as well. On Lasix BID BNP 5100 Echo was completed. Anasarca From CHF Exacerbation, albumin 3.1 Checking a urine protein Hypertension Norvasc 5mg Electrolyte abnormality 10/25: Better - K is 3.7 today K 3.2 on AM labs
[2017-10-25] MEDS ORDERED: HEPARIN-NS 5,000 UNITS/500 ML 0 UNIT/0 ML BAG IV ONE (13:21)
--- NOTE | 2017-10-25 13:32 | CP.PCM.CON ---
History of Present Illness - History of Present Illness History of Present Illness: Cardiac EP note Re: Third degree AV block Chart reviewed Patient and daughter interviewed and examined via an translator interpreter Admitted with worsening shortness of breath and edema and was noted to be in a complete heart block; no history of syncope; does complain of occasional dizziness Past medical history significant for systemic hypertension Past surgery: none Medications: amlodipine Allergies: none Denied smoking alcohol or substance abuse Exam: Frail Normal venous pressures Clear lungs No edema Varying heart sounds intensity Imaging reviewed EKG: sinus tachycardia, AV dissociation with stable narrow complex escape rhythm ECho: normal LV systolic function; pulmonary hypertension Labs: reviewed Past Patient History - Past Medical History & Family History Past Medical History?: Yes - Past Social History Smoking Status: Never Smoked - CARDIAC Hx Hypertension: Yes - PULMONARY Hx Asthma: Yes Hx Tuberculosis: Yes - NEUROLOGICAL Hx Neurological Disorder: No - HEENT Hx HEENT Problems: No - RENAL Hx Chronic Kidney Disease: No - ENDOCRINE/METABOLIC Hx Endocrine Disorders: No - HEMATOLOGICAL/ONCOLOGICAL Hx Blood Disorders: No - INTEGUMENTARY Hx Dermatological Problems: No - MUSCULOSKELETAL/RHEUMATOLOGICAL Hx Osteoporosis: Yes Hx Unsteady Gait: Yes - GASTROINTESTINAL Hx Gastrointestinal Disorders: No - GENITOURINARY/GYNECOLOGICAL Hx Genitourinary Disorders: No - PSYCHIATRIC Hx Substance Use: No - SURGICAL HISTORY Hx Surgeries: No - ANESTHESIA Hx Anesthesia: No Meds Allergies/Adverse Reactions: Allergies Allergy/AdvReac Type Severity Reaction Status Date / Time No Known Allergies Allergy Verified 10/23/17 15:58 - Medications Medications: Current Medications Amlodipine Besylate (Norvasc) 5 mg PO DAILY [facility] Last Admin: 10/25/17 09:13 Dose: 5 mg Famotidine (Pepcid) 20 mg IVP DAILY [facility] Last Admin: 10/25/17 09:12 Dose: 20 mg Furosemide (Lasix) 40 mg IVP Q12H [facility] Last Admin: 10/25/17 08:05 Dose: 40 mg Results - Vital Signs Recent Vital Signs: Last Vital Signs Temp 98.2 F 10/25/17 12:00 Pulse 83 10/25/17 12:00 Resp 16 10/25/17 12:00 BP 130/45 L 10/25/17 11:59 Pulse Ox 99 10/25/17 12:00 - Labs Result Diagrams: 10/25/17 06:12 10/25/17 06:14 Labs: Laboratory Results - last 24 hr 10/24/17 10/25/17 10/25/17 13:32 06:12 06:14 WBC 6.5 RBC 3.48 L Hgb 10.7 L Hct 31.3 L MCV 89.9 MCH 30.8 MCHC 34.3 RDW 13.3 Plt Count 110 L MPV 12.4 H Neut % (Auto) 51.9 Lymph % (Auto) 35.4 [place] % (Auto) 10.4 H Eos % (Auto) 1.5 Baso % (Auto) 0.8 Neut # (Auto) 3.4 Lymph # (Auto) 2.3 [place] # (Auto) 0.7 Eos # (Auto) 0.1 Baso # (Auto) 0.1 Sodium 141 Potassium 3.7 Chloride 103 Carbon Dioxide 27 Anion Gap 15 BUN 14 Creatinine 1.1 Est GFR ( Amer) 58 Est GFR (Non-Af Amer) 48 Random Glucose 81 Calcium 8.5 L Phosphorus 4.4 Magnesium 1.4 L Total Bilirubin 0.8 AST 50 H ALT 39 Alkaline Phosphatase 47 Total Creatine Kinase 70 CK-MB (Mass) 0.87 Troponin I 0.0120 Total Protein 6.2 L Albumin 3.0 L Globulin 3.2 Albumin/Globulin Ratio 0.9 L Assessment & Plan - Assessment and Plan (Free Text) Assessment: 69 year old with effort intolerance diastolic heart failure and a complete AV block; the latter is likely permanent and reflects degenerative conduction disease discounting the presence of coronary artery or any other systemic disease Although hemodynamically stable its prudent to place a permanent pacemaker given the occasional dizziness Discussed prognosis options (conservative therapy with a pacemaker) risks including but not limited to pneumothorax bleeding infection tamponade; they verbalized understanding and preferred a pacemaker implant Plan: NPO Correct K
[2017-10-25] MEDS ORDERED: Midazolam 2 MG/2 ML VIAL ONE (13:42)
--- NOTE | 2017-10-25 14:45 | PCM.OP ---
Operative Report - Operative Report Date of Surgery/Procedure: 10/25/17 Time of Surgery/Procedure: 14:44 Surgeon: robert VEGA Anesthesia/Sedation: MAC Pre-Operative Diagnosis: Complete heart block Post-Operative Diagnosis: Complete heart block Indication for Surgery: Complete AV block Operative Findings: Sinus tachycardia and AV dissociation with a stable narrow complex escape rhythm Procedure/Operation Description: After informed consent the left pectoral region was draped and prepped. The left axillary vein was accessed after local anesthesia was administred. Two 6Fr sheaths were placed. A 3 cm incision was made and a pocket created. Two pacing leads were placed in the Right atrial appendage (46cm Tendril 2088TC serial [id number]) and the right ventricular apex (52 cm Tendril 2088TC; serial [id number]). Pace and sense parameters were in the normal range. The leads were sutured to the pectoral fascia. Hemostasis and antibiotic flush were performed. The [employer] pacemaker generator ([facility] MRI [id number]; serial [id number]) was attached to the leads. The pocket was closed in layers Estimated Blood Loss: 6 cc Complications: None Discharge & Condition: Stable
--- NOTE | 2017-10-25 14:51 | CP.PCM.PN ---
Subjective - Date & Time of Evaluation Date of Evaluation: 10/25/17 Time of Evaluation: 14:48 - Subjective Subjective: Post surgical note Ms. Penny underwent a pacemaker implant without complications She was agitated during the surgery; may increase the risk of post op bleeding Complications: none Plan Ancef 1gm x 3 doses Keflex 250 mg tid x 5 days Chest xray Arm sling/restraint Wound care [place] to be discontinued in a week Objective - Vital Signs/Intake and Output Vital Signs (last 24 hours): Temp Pulse Resp BP Pulse Ox 98.2 F 83 16 130/45 L 99 10/25/17 12:00 10/25/17 12:00 10/25/17 12:00 10/25/17 11:59 10/25/17 12:00 Intake and Output: 10/25/17 10/25/17 06:59 18:59 Intake Total 350 550 Output Total 1320 880 Balance -970 -330 - Medications Medications: Current Medications Amlodipine Besylate (Norvasc) 5 mg PO DAILY [facility] Last Admin: 10/25/17 09:13 Dose: 5 mg Famotidine (Pepcid) 20 mg IVP DAILY [facility] Last Admin: 10/25/17 09:12 Dose: 20 mg Furosemide (Lasix) 40 mg IVP Q12H [facility] Last Admin: 10/25/17 08:05 Dose: 40 mg - Labs Labs: 10/25/17 06:12 10/25/17 06:14 PT 13.8 SECONDS (9.7-12.2) H 10/23/17 16:28 INR 1.2 10/23/17 16:28 APTT 31 SECONDS (21-34) 10/23/17 16:28
--- NOTE | 2017-10-25 18:50 | RAD ---
PROCEDURE: Intraoperative Fluoroscopy. HISTORY: COMPLETE HEART BLOCK FINDINGS: Fluoroscopic assistance was provided for pacemaker placement. Please refer to the operative report from DAVID Shell, DR MD. Total fluoroscopic time (continuous mode) utilized during the procedure 157.4 (seconds). Total exam DLP: 0.54 mGy per meter squared.
--- NOTE | 2017-10-25 23:38 | CP.PCM.PN ---
Subjective - Date & Time of Evaluation Date of Evaluation: 10/25/17 Time of Evaluation: 08:15 - Subjective Subjective: Patient seen and evaluated Denies chest pain and dyspnea For PPM today Objective - Vital Signs/Intake and Output Vital Signs (last 24 hours): Temp Pulse Resp BP Pulse Ox 98.4 F 93 H 21 135/79 100 10/25/17 21:41 10/25/17 20:22 10/25/17 20:22 10/25/17 20:40 10/25/17 20:22 Intake and Output: 10/25/17 10/26/17 18:59 06:59 Intake Total 1030 250 Output Total 1780 0 Balance -750 250 - Medications Medications: Current Medications Acetaminophen (Tylenol 325mg Tab) 650 mg PO Q6 PRN PRN Reason: Other Last Admin: 10/25/17 20:41 Dose: 650 mg Amlodipine Besylate (Norvasc) 5 mg PO DAILY ALVIN Last Admin: 10/25/17 09:13 Dose: 5 mg Famotidine (Pepcid) 20 mg IVP DAILY [facility] Last Admin: 10/25/17 09:12 Dose: 20 mg Furosemide (Lasix) 40 mg IVP Q12H [facility] Last Admin: 10/25/17 20:40 Dose: 40 mg Cefazolin Sodium 1 gm/ Sodium (Chloride) 100 mls @ 100 mls/hr IVPB Q8H ALVIN PRN Reason: Protocol Last Admin: 10/25/17 18:30 Dose: 100 mls/hr - Labs Labs: 10/25/17 06:12 10/25/17 06:14 PT 13.8 SECONDS (9.7-12.2) H 10/23/17 16:28 INR 1.2 10/23/17 16:28 APTT 31 SECONDS (21-34) 10/23/17 16:28
[2017-10-26 06:17] LABS: BASO % 0.4 % (0.0-2.0); EOS # 0.1 K/uL (0.0-0.7); HEMOGLOBIN 11.6 g/dL (11.0-16.0); LYMPH # 1.4 K/uL (1.0-4.3); LYMPH % 20.7 % (20.0-40.0); MEAN CELL VOLUME 89.4 fL (81.0-99.0); MEAN CORPUSCULAR HEMOGLOBIN 30.8 pg (27.0-31.0); MEAN CORPUSCULAR HGB CONC 34.4 g/dL (33.0-37.0); MEAN PLATELET VOLUME 12.1 fL (7.2-11.7); MONO # 0.8 K/uL (0.0-0.8); MONO % 12.4 % (0.0-10.0); NEUT # 4.5 K/uL (1.8-7.0); NEUT % 65.5 % (50.0-75.0); NRBC % 0.1 % (0.0-2.0); RBC 3.79 Mil/uL (3.80-5.20); RED CELL DISTRIBUTION WIDTH 13.2 % (11.5-14.5); WHITE BLOOD COUNT 6.9 K/uL (4.8-10.8)
[2017-10-26 06:39] LABS: ALBUMIN 3.3 g/dL (3.5-5.0); ALT/SGPT 40 U/L (9-52); AST/SGOT 54 U/L (14-36); BLOOD UREA NITROGEN 11 mg/dL (7-17); CALCIUM 8.6 mg/dl (8.6-10.4); GFR AFRICAN-AMERICAN > 60; GFR NON-AFRICAN AMERICAN 53
[2017-10-26] MEDS ORDERED: Potassium Chloride 20 mEq/15 ml LIQ UD PO ONE (07:30)
[2017-10-26] MEDS ORDERED: Magnesium Sulfate 1 gm in D5W 1 GM/100 ML BAG IVPB ONE (08:00)
--- NOTE | 2017-10-26 10:34 | CP.CCUPN ---
<Dave Castro - Last Filed: 10/26/17 10:27> CCU Subjective - Physician Review Subjective (Free Text): 10/24/17 10:52 Patient seen and examined. Patient states that she does not have any complaints at this time. She is breathing well and does not feel dizzy or weak at this time. 10/25/17 08:41 Patient seen and examined. Patient has no complaints at this time and is resting comfortably. 10/26/17 10:27 Patient seen and examined. She is post op day 1 of PPM placement. Patient has no complaints at this time. She is set to get pacemaker interrogated later today. CCU Objective - Vital Signs / Intake & Output Vital Signs (Last 4 hours): Vital Signs Temp Pulse Resp BP Pulse Ox 10/26/17 10:00 86 16 94 L 10/26/17 09:23 82 20 120/91 H 90 L 10/26/17 09:00 83 13 93 L 10/26/17 08:35 129/81 10/26/17 08:00 98.7 F 10/26/17 07:00 92 H 21 95 Intake and Output (Last 8hrs): Intake & Output 10/25/17 10/26/17 10/26/17 22:59 06:59 14:59 Intake Total 880 0 460 Output Total 1400 1200 0 Balance -520 -1200 460 Weight 104 lb 1.6 oz Intake: Intake, IV Amount 100 100 Left Forearm 100 100 Oral 780 0 360 Output: Urine 1400 1200 0 Urethral ([place]) 700 Urine, Voided 700 1200 0 Other: # Bowel Movements 0 0 0 - Physical Exam Head: Positive for: Atraumatic, Normocephalic Pupils: Positive for: PERRL Extroacular Muscles: Positive for: EOMI Conjunctiva: Positive for: Normal Mouth: Positive for: Moist Mucous Membranes Respiratory/Chest: Positive for: Clear to Auscultation. Negative for: Wheezes, Rales, Rhonchi Cardiovascular: Positive for: Regular Rate and Rhythm, Normal S1, S2 Abdomen: Positive for: Normal Bowel Sounds. Negative for: Tenderness, Distention Upper Extremity: Positive for: Normal Inspection Lower Extremity: Positive for: Normal Inspection Neurological: Positive for: GCS=15 Skin: Positive for: Warm, Dry Psychiatric: Positive for: Alert - Medications Active Medications: Active Medications Generic Name Dose Route Start Last Admin Trade Name Freq PRN Reason Stop Dose Admin Acetaminophen 650 mg 10/25/17 20:13 10/25/17 20:41 Tylenol 325mg Tab PO 650 mg Q6 PRN Administration Other Amlodipine Besylate 5 mg 10/24/17 10:00 10/25/17 09:13 Norvasc PO 5 mg DAILY ALVIN Administration Famotidine 20 mg 10/26/17 10:00 Pepcid PO BID ALVIN Cefazolin Sodium 1 gm/ Sodium 100 mls @ 100 mls/hr 10/25/17 19:30 10/26/17 02 :45 Chloride IVPB 10/26/17 12:29 100 mls/hr Q8H ALVIN Administration Protocol - Patient Studies Lab Studies: Microbiology Studies 10/23/17 21:49 MRSA Culture (Admit) - Final Nose MRSA NOT DETECTED 10/23/17 21:55 Urine Culture - Final Urine,Catheterized No Growth (<1,000 CFU/ML) Lab Studies 10/26/17 10/26/17 Range/Units 06:04 06:04 WBC 6.9 (4.8-10.8) K/uL RBC 3.79 L (3.80-5.20) Mil/uL Hgb 11.6 (11.0-16.0) g/dL Hct 33.9 L (34.0-47.0) % MCV 89.4 (81.0-99.0) fL MCH 30.8 (27.0-31.0) pg MCHC 34.4 (33.0-37.0) g/dL RDW 13.2 (11.5-14.5) % Plt Count 116 L (130-400) K/uL MPV 12.1 H (7.2-11.7) fL Neut % (Auto) 65.5 (50.0-75.0) % Lymph % (Auto) 20.7 (20.0-40.0) % Sierra % (Auto) 12.4 H (0.0-10.0) % Eos % (Auto) 1.0 (0.0-4.0) % Baso % (Auto) 0.4 (0.0-2.0) % Neut # (Auto) 4.5 (1.8-7.0) K/uL Lymph # (Auto) 1.4 (1.0-4.3) K/uL Sierra # (Auto) 0.8 (0.0-0.8) K/uL Eos # (Auto) 0.1 (0.0-0.7) K/uL Baso # (Auto) 0.0 (0.0-0.2) K/uL Sodium 140 (132-148) mmol/L Potassium 3.0 L (3.6-5.2) mmol/L Chloride 96 L (98-107) mmol/L Carbon Dioxide 33 H (22-30) mmol/L Anion Gap 14 (10-20) BUN 11 (7-17) mg/dL Creatinine 1.0 (0.7-1.2) mg/dL Est GFR ( Amer) > 60 Est GFR (Non-Af Amer) 53 Random Glucose 93 (65-105) mg/dL Calcium 8.6 (8.6-10.4) mg/dl Phosphorus 4.6 H (2.5-4.5) mg/dL Magnesium 1.6 (1.6-2.3) mg/dL Total Bilirubin 0.9 (0.2-1.3) mg/dL AST 54 H (14-36) U/L ALT 40 (9-52) U/L Alkaline Phosphatase 62 (38-126) U/L Total Protein 6.8 (6.3-8.3) g/dL Albumin 3.3 L (3.5-5.0) g/dL Globulin 3.5 (2.2-3.9) gm/dL Albumin/Globulin Ratio 1.0 (1.0-2.1) Laboratory Results - last 24 hr 10/26/17 10/26/17 06:04 06:04 WBC 6.9 RBC 3.79 L Hgb 11.6 Hct 33.9 L MCV 89.4 MCH 30.8 MCHC 34.4 RDW 13.2 Plt Count 116 L MPV 12.1 H Neut % (Auto) 65.5 Lymph % (Auto) 20.7 Sierra % (Auto) 12.4 H Eos % (Auto) 1.0 Baso % (Auto) 0.4 Neut # (Auto) 4.5 Lymph # (Auto) 1.4 Sierra # (Auto) 0.8 Eos # (Auto) 0.1 Baso # (Auto) 0.0 Sodium 140 Potassium 3.0 L Chloride 96 L Carbon Dioxide 33 H Anion Gap 14 BUN 11 Creatinine 1.0 Est GFR ( Amer) > 60 Est GFR (Non-Af Amer) 53 Random Glucose 93 Calcium 8.6 Phosphorus 4.6 H Magnesium 1.6 Total Bilirubin 0.9 AST 54 H ALT 40 Alkaline Phosphatase 62 Total Protein 6.8 Albumin 3.3 L Globulin 3.5 Albumin/Globulin Ratio 1.0 Critical Care Progress Note - Nutrition Nutrition: Nutrition Category Date Time Status Heart Healthy Diet [DIET] Diets 10/25/17 Dinner Active Assessment/Plan - Assessment and Plan (Free Text) Assessment: This is an 81 year old female with PMHx HTN who was admitted to ICU for AV disassociation heart block. QRS complexes are at regular intervals at this time. Patient is NPO for pacemaker placement today. Neuro Awake, Verbal Cardio Norvasc 5 mg PO daily Cardiology and Electrophysiology consulted PPM placed on 10/25/17 Pulm Saturating well on nasal cannula GI Heart Healthy Diet Pepcid 20 mg IV daily Infectious Disease Set to finish Ancef x3 doses today Will need Keflex as outpatient per Dr. Anderson Prophylaxis Pepcid 20 mg IV daily No anticoagulation due to PPM placement Disposition: transfer to telemetry Discussed with Dr. Liz <Chaitanya Liz S - Last Filed: 10/26/17 17:54> CCU Objective - Vital Signs / Intake & Output Vital Signs (Last 4 hours): Vital Signs Temp Pulse Resp BP Pulse Ox 10/26/17 16:22 85 15 119/71 95 10/26/17 16:00 99.4 F 82 20 92 L 10/26/17 15:22 89 20 114/75 96 10/26/17 15:00 91 H 18 96 10/26/17 14:23 81 19 119/78 95 10/26/17 14:00 80 18 96 Intake and Output (Last 8hrs): Intake & Output 10/26/17 10/26/17 10/26/17 06:59 14:59 22:59 Intake Total 0 1020 Output Total 1200 0 Balance -1200 1020 Weight 104 lb 1.6 oz Intake: Intake, IV Amount 300 Left Forearm 100 Right Forearm 200 Oral 0 720 Output: Urine 1200 0 Urine, Voided 1200 0 Other: # Voids Urine, Voided 1 # Bowel Movements 0 0 - Medications Active Medications: Active Medications Generic Name Dose Route Start Last Admin Trade Name Malik PRN Reason Stop Dose Admin Acetaminophen 650 mg 10/25/17 20:13 10/25/17 20:41 Tylenol 325mg Tab PO 650 mg Q6 PRN Administration Other Amlodipine Besylate 5 mg 10/24/17 10:00 10/26/17 11:08 Norvasc PO 5 mg DAILY ALVIN Administration Cephalexin Monohydrate 250 mg 10/26/17 18:00 10/26/17 17:15 Keflex PO 10/31/17 14:01 250 mg TID ALVIN Administration Protocol Famotidine 20 mg 10/26/17 10:00 10/26/17 17:15 Pepcid PO 20 mg BID ALVIN Administration - Patient Studies Lab Studies: Lab Studies 10/26/17 10/26/17 Range/Units 06:04 06:04 WBC 6.9 (4.8-10.8) K/uL RBC 3.79 L (3.80-5.20) Mil/uL Hgb 11.6 (11.0-16.0) g/dL Hct 33.9 L (34.0-47.0) % MCV 89.4 (81.0-99.0) fL MCH 30.8 (27.0-31.0) pg MCHC 34.4 (33.0-37.0) g/dL RDW 13.2 (11.5-14.5) % Plt Count 116 L (130-400) K/uL MPV 12.1 H (7.2-11.7) fL Neut % (Auto) 65.5 (50.0-75.0) % Lymph % (Auto) 20.7 (20.0-40.0) % Sierra % (Auto) 12.4 H (0.0-10.0) % Eos % (Auto) 1.0 (0.0-4.0) % Baso % (Auto) 0.4 (0.0-2.0) % Neut # (Auto) 4.5 (1.8-7.0) K/uL Lymph # (Auto) 1.4 (1.0-4.3) K/uL Sierra # (Auto) 0.8 (0.0-0.8) K/uL Eos # (Auto) 0.1 (0.0-0.7) K/uL Baso # (Auto) 0.0 (0.0-0.2) K/uL Sodium 140 (132-148) mmol/L Potassium 3.0 L (3.6-5.2) mmol/L Chloride 96 L (98-107) mmol/L Carbon Dioxide 33 H (22-30) mmol/L Anion Gap 14 (10-20) BUN 11 (7-17) mg/dL Creatinine 1.0 (0.7-1.2) mg/dL Est GFR ( Amer) > 60 Est GFR (Non-Af Amer) 53 Random Glucose 93 (65-105) mg/dL Calcium 8.6 (8.6-10.4) mg/dl Phosphorus 4.6 H (2.5-4.5) mg/dL Magnesium 1.6 (1.6-2.3) mg/dL Total Bilirubin 0.9 (0.2-1.3) mg/dL AST 54 H (14-36) U/L ALT 40 (9-52) U/L Alkaline Phosphatase 62 (38-126) U/L Total Protein 6.8 (6.3-8.3) g/dL Albumin 3.3 L (3.5-5.0) g/dL Globulin 3.5 (2.2-3.9) gm/dL Albumin/Globulin Ratio 1.0 (1.0-2.1) Laboratory Results - last 24 hr 10/26/17 10/26/17 06:04 06:04 WBC 6.9 RBC 3.79 L Hgb 11.6 Hct 33.9 L MCV 89.4 MCH 30.8 MCHC 34.4 RDW 13.2 Plt Count 116 L MPV 12.1 H Neut % (Auto) 65.5 Lymph % (Auto) 20.7 Sierra % (Auto) 12.4 H Eos % (Auto) 1.0 Baso % (Auto) 0.4 Neut # (Auto) 4.5 Lymph # (Auto) 1.4 Sierra # (Auto) 0.8 Eos # (Auto) 0.1 Baso # (Auto) 0.0 Sodium 140 Potassium 3.0 L Chloride 96 L Carbon Dioxide 33 H Anion Gap 14 BUN 11 Creatinine 1.0 Est GFR ( Amer) > 60 Est GFR (Non-Af Amer) 53 Random Glucose 93 Calcium 8.6 Phosphorus 4.6 H Magnesium 1.6 Total Bilirubin 0.9 AST 54 H ALT 40 Alkaline Phosphatase 62 Total Protein 6.8 Albumin 3.3 L Globulin 3.5 Albumin/Globulin Ratio 1.0 Critical Care Progress Note - Nutrition Nutrition: Nutrition Category Date Time Status Heart Healthy Diet [DIET] Diets 10/25/17 Dinner Active Attending/Attestation - Attestation I have personally seen and examined this patient.: Yes I have fully participated in the care of the patient.: Yes I have reviewed all pertinent clinical information: Yes Notes (Text): 10/26/17 17:53 Patient seen and examined in the intensive care unit. Status post permanent pacemaker insertion Stable for transfer to floor
--- NOTE | 2017-10-26 11:34 | CP.PCM.PN ---
Subjective - Date & Time of Evaluation Date of Evaluation: 10/26/17 Time of Evaluation: 11:00 - Subjective Subjective: Patient was seen and examined by me earlier in the morning. The patient's family member was at bedside. She was very talkative and pleasant affect On telemetry her HR was 90s and paced. She is POD 1 of PPM Today will be going out of ICU Patient explained she felt well. She denied shortness of breath, denied chest pain, denied abdominal pain, denied headache, denied nausea and vommitting. Objective - Vital Signs/Intake and Output Vital Signs (last 24 hours): Temp Pulse Resp BP Pulse Ox 98.7 F 86 16 120/91 H 94 L 10/26/17 08:00 10/26/17 10:00 10/26/17 10:00 10/26/17 09:23 10/26/17 10:00 Intake and Output: 10/26/17 10/26/17 06:59 18:59 Intake Total 400 460 Output Total 1900 0 Balance -1500 460 - Medications Medications: Current Medications Acetaminophen (Tylenol 325mg Tab) 650 mg PO Q6 PRN PRN Reason: Other Last Admin: 10/25/17 20:41 Dose: 650 mg Amlodipine Besylate (Norvasc) 5 mg PO DAILY [facility] Last Admin: 10/26/17 11:08 Dose: 5 mg Famotidine (Pepcid) 20 mg PO BID [facility] Last Admin: 10/26/17 11:09 Dose: 20 mg Cefazolin Sodium 1 gm/ Sodium (Chloride) 100 mls @ 100 mls/hr IVPB Q8H [facility]VIN PRN Reason: Protocol Stop: 10/26/17 12:29 Last Admin: 10/26/17 11:08 Dose: 100 mls/hr - Labs Labs: 10/26/17 06:04 10/26/17 06:04 PT 13.8 SECONDS (9.7-12.2) H 10/23/17 16:28 INR 1.2 10/23/17 16:28 APTT 31 SECONDS (21-34) 10/23/17 16:28 - Constitutional Appears: Well, No Acute Distress - Head Exam Head Exam: NORMAL INSPECTION, NORMOCEPHALIC - Eye Exam Eye Exam: EOMI, Normal appearance - ENT Exam ENT Exam: Mucous Membranes Moist - Respiratory Exam Respiratory Exam: Chest Wall Tenderness, Clear to Ausculation Bilateral, NORMAL BREATHING PATTERN - Cardiovascular Exam Cardiovascular Exam: REGULAR RHYTHM Additional comments: Patient has dressing/bandages over left chest shoulder area. - Neurological Exam Neurological Exam: Alert, Awake Neuro motor strength exam: Left Upper Extremity: 5, Right Upper Extremity: 5 - Psychiatric Exam Psychiatric exam: Normal Affect, Normal Mood - Skin Skin Exam: Normal Color, Warm Assessment and Plan - Assessment and Plan (Free Text) Assessment: 3rd degree AV block 10/26: Doing well. She is POD 1 of PPM placement 10/25: Later today going to the OR 10/24: There are several 12 leads with the block. Echo was done earlier this AM. Lab work is stable at this moment. 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 10/25: Continue with lasix, the weight has decreased to 110 lbs 10/24: The patient dpes have a moderate pleural effusion as well. On Lasix BID BNP 5100 Echo was completed. Anasarca From CHF Exacerbation, albumin 3.1 Checking a urine protein Hypertension Norvasc 5mg Electrolyte abnormality 10/25: Better - K is 3.7 today K 3.2 on AM labs
--- NOTE | 2017-10-26 15:00 | CP.PCM.PN ---
<Wale Upton - Last Filed: 10/26/17 14:57> Subjective - Date & Time of Evaluation Date of Evaluation: 10/26/17 Time of Evaluation: 14:57 - Subjective Subjective: PGY-[address] Lovelace's Cardiology Service: Pt seen and examined at bedside. Nursing reports no acute events overnight. Patient found resting comfortably in chair. She denies dizziness, chest pain, sob, or palpitations. Patient denies any acute complaints and is asking when she will go home. Objective - Vital Signs/Intake and Output Vital Signs (last 24 hours): Temp Pulse Resp BP Pulse Ox 97.1 F L 86 16 120/91 H 94 L 10/26/17 12:00 10/26/17 10:00 10/26/17 10:00 10/26/17 09:23 10/26/17 10:00 Intake and Output: 10/26/17 10/26/17 06:59 18:59 Intake Total 400 1020 Output Total 1900 0 Balance -1500 1020 - Medications Medications: Current Medications Acetaminophen (Tylenol 325mg Tab) 650 mg PO Q6 PRN PRN Reason: Other Last Admin: 10/25/17 20:41 Dose: 650 mg Amlodipine Besylate (Norvasc) 5 mg PO DAILY [facility] Last Admin: 10/26/17 11:08 Dose: 5 mg Famotidine (Pepcid) 20 mg PO BID [facility] Last Admin: 10/26/17 11:09 Dose: 20 mg - Labs Labs: 10/26/17 06:04 10/26/17 06:04 PT 13.8 SECONDS (9.7-12.2) H 10/23/17 16:28 INR 1.2 10/23/17 16:28 APTT 31 SECONDS (21-34) 10/23/17 16:28 - Additional Findings Additional findings: - Constitutional Appears: Well, No Acute Distress - Head Exam Head Exam: NORMAL INSPECTION, NORMOCEPHALIC - Eye Exam Eye Exam: EOMI, Normal appearance - ENT Exam ENT Exam: Mucous Membranes Moist - Respiratory Exam Respiratory Exam: Chest Wall Tenderness, Clear to Ausculation Bilateral, NORMAL BREATHING PATTERN - Cardiovascular Exam Cardiovascular Exam: REGULAR RHYTHM Additional comments: Pacemaker bandages c/d/i over left chest - Neurological Exam Neurological Exam: Alert, Awake Neuro motor strength exam: Left Upper Extremity: 5, Right Upper Extremity: 5 - Psychiatric Exam Psychiatric exam: Normal Affect, Normal Mood - Skin Skin Exam: Normal Color, Warm Assessment and Plan - Assessment and Plan (Free Text) Plan: 3rd degree AV block Cardiology consulted, 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 Anderson CHF exacerbation CXR (10/23/17): NAD BNP 5150 (no others to compare) Lasix 40mg IV Q12H Troponin negative x 3 ECHO (10/26/17): EF > 70%, LV diastolic function normal. Moderate aortic regurgitation. 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 Anasarca - secondary to CHF Exacerbation, Albumin low (3.1) - Management per ICU team Hypertension - Norvasc 5mg Electrolyte abnormality K 3.0 on AM labs; repleted Disposition: Patient stable from cardiac standpoint for discharge Wale Upton PGY-2 D/w Dr. Lovelace <Wilbert Lovelace - Last Filed: 10/26/17 22:05> Objective - Vital Signs/Intake and Output Vital Signs (last 24 hours): Temp Pulse Resp BP Pulse Ox 99.4 F 86 15 119/71 95 10/26/17 16:00 10/26/17 18:00 10/26/17 16:22 10/26/17 16:22 10/26/17 16:22 Intake and Output: 10/26/17 10/27/17 18:59 06:59 Intake Total 1020 Output Total 0 Balance 1020 - Medications Medications: Current Medications Acetaminophen (Tylenol 325mg Tab) 650 mg PO Q6 PRN PRN Reason: Other Last Admin: 10/25/17 20:41 Dose: 650 mg Amlodipine Besylate (Norvasc) 5 mg PO DAILY [facility] Last Admin: 10/26/17 11:08 Dose: 5 mg Cephalexin Monohydrate (Keflex) 250 mg PO TID ALVIN PRN Reason: Protocol Stop: 10/31/17 14:01 Last Admin: 10/26/17 17:15 Dose: 250 mg Famotidine (Pepcid) 20 mg PO BID [facility] Last Admin: 10/26/17 17:15 Dose: 20 mg - Labs Labs: 10/26/17 06:04 10/26/17 06:04 PT 13.8 SECONDS (9.7-12.2) H 10/23/17 16:28 INR 1.2 10/23/17 16:28 APTT 31 SECONDS (21-34) 10/23/17 16:28 Assessment and Plan - Assessment and Plan (Free Text) Plan: Patient seen and evaluated personally by me Plan of care d/w the medical coder and as documented
[2017-10-26 16:58] VITALS: RESP 15
[2017-10-27 09:08] VITALS: BP 165/120; O2SAT 94
[2017-10-27 10:18] LABS: BASO # 0.1 K/uL (0.0-0.2); BASO % 0.8 % (0.0-2.0); EOS # 0.1 K/uL (0.0-0.7); EOS % 1.1 % (0.0-4.0); HEMOGLOBIN 12.9 g/dL (11.0-16.0); LYMPH # 1.5 K/uL (1.0-4.3); LYMPH % 20.3 % (20.0-40.0); MEAN CELL VOLUME 90.2 fL (81.0-99.0); MEAN CORPUSCULAR HEMOGLOBIN 30.7 pg (27.0-31.0); MEAN CORPUSCULAR HGB CONC 34.1 g/dL (33.0-37.0); MEAN PLATELET VOLUME 11.7 fL (7.2-11.7); MONO # 0.7 K/uL (0.0-0.8); MONO % 9.4 % (0.0-10.0); NEUT # 5.1 K/uL (1.8-7.0); NEUT % 68.4 % (50.0-75.0); NRBC % 0.1 % (0.0-2.0); RBC 4.2 Mil/uL (3.80-5.20); RED CELL DISTRIBUTION WIDTH 13.2 % (11.5-14.5); WHITE BLOOD COUNT 7.4 K/uL (4.8-10.8)
[2017-10-27 10:37] LABS: ALBUMIN 3.3 g/dL (3.5-5.0); ALT/SGPT 24 U/L (9-52); AST/SGOT 48 U/L (14-36); BLOOD UREA NITROGEN 11 mg/dL (7-17); CALCIUM 8.2 mg/dl (8.6-10.4); GFR AFRICAN-AMERICAN > 60; GFR NON-AFRICAN AMERICAN 53
[2017-10-27 10:52] VITALS: PULSE 84
[2017-10-27] MEDS ORDERED: Potassium Chloride 20 mEq ER Tab PO ONE (14:52)
[2017-10-27 16:45] VITALS: TEMP 97.7
--- NOTE | 2017-10-27 17:05 | CP.PCM.DIS ---
Provider - Provider Date of Admission: 10/23/17 21:00 Attending physician: Paul Murcia DO Primary care physician: Dr. Bhanu Ramires Consults: Dr. Anderson (cardio) Dr. Lovelace (cardio) Time Spent in preparation of Discharge (in minutes): 40 Diagnosis - Discharge Diagnosis (1) Third degree AV block Status: Resolved Comment: Pacemaker placed on 10/25/17 (2) Anasarca Status: Resolved (3) CHF exacerbation Status: Resolved (4) Hypertension Status: Chronic Hospital Course - Lab Results Lab Results: Micro Results 10/23/17 21:49 Nose MRSA Culture (Admit) - Final MRSA NOT DETECTED 10/23/17 21:55 Urine,Catheterized Urine Culture - Final No Growth (<1,000 CFU/ML) Most Recent Lab Values WBC 7.4 K/uL (4.8-10.8) 10/27/17 10:07 RBC 4.20 Mil/uL (3.80-5.20) 10/27/17 10:07 Hgb 12.9 g/dL (11.0-16.0) 10/27/17 10:07 Hct 37.9 % (34.0-47.0) 10/27/17 10:07 MCV 90.2 fL (81.0-99.0) 10/27/17 10:07 MCH 30.7 pg (27.0-31.0) 10/27/17 10:07 MCHC 34.1 g/dL (33.0-37.0) 10/27/17 10:07 RDW 13.2 % (11.5-14.5) 10/27/17 10:07 Plt Count 122 K/uL (130-400) L 10/27/17 10:07 MPV 11.7 fL (7.2-11.7) 10/27/17 10:07 Neut % (Auto) 68.4 % (50.0-75.0) 10/27/17 10:07 Lymph % (Auto) 20.3 % (20.0-40.0) 10/27/17 10:07 [place] % (Auto) 9.4 % (0.0-10.0) 10/27/17 10:07 Eos % (Auto) 1.1 % (0.0-4.0) 10/27/17 10:07 Baso % (Auto) 0.8 % (0.0-2.0) 10/27/17 10:07 Neut # (Auto) 5.1 K/uL (1.8-7.0) 10/27/17 10:07 Lymph # (Auto) 1.5 K/uL (1.0-4.3) 10/27/17 10:07 [place] # (Auto) 0.7 K/uL (0.0-0.8) 10/27/17 10:07 Eos # (Auto) 0.1 K/uL (0.0-0.7) 10/27/17 10:07 Baso # (Auto) 0.1 K/uL (0.0-0.2) 10/27/17 10:07 Differential Comment 10/24/17 05:56 PT 13.8 SECONDS (9.7-12.2) H 10/23/17 16:28 INR 1.2 10/23/17 16:28 APTT 31 SECONDS (21-34) 10/23/17 16:28 Sodium 137 mmol/L (132-148) 10/27/17 10:07 Potassium 3.5 mmol/L (3.6-5.2) L 10/27/17 10:07 Chloride 96 mmol/L (98-107) L 10/27/17 10:07 Carbon Dioxide 29 mmol/L (22-30) 10/27/17 10:07 Anion Gap 16 (10-20) 10/27/17 10:07 BUN 11 mg/dL (7-17) 10/27/17 10:07 Creatinine 1.0 mg/dL (0.7-1.2) 10/27/17 10:07 Est GFR ( Amer) > 60 10/27/17 10:07 Est GFR (Non-Af Amer) 53 10/27/17 10:07 Random Glucose 188 mg/dL (65-105) H 10/27/17 10:07 Calcium 8.2 mg/dl (8.6-10.4) L 10/27/17 10:07 Phosphorus 3.3 mg/dL (2.5-4.5) 10/27/17 10:07 Magnesium 1.9 mg/dL (1.6-2.3) 10/27/17 10:07 Total Bilirubin 1.0 mg/dL (0.2-1.3) 10/27/17 10:07 AST 48 U/L (14-36) H 10/27/17 10:07 ALT 24 U/L (9-52) 10/27/17 10:07 Alkaline Phosphatase 57 U/L (38-126) 10/27/17 10:07 Total Creatine Kinase 70 U/L (30-135) 10/24/17 13:32 CK-MB (Mass) 0.87 ng/mL (0.0-3.38) 10/24/17 13:32 Troponin I 0.0120 ng/mL (0.00-0.120) 10/24/17 13:32 NT-Pro-B Natriuret Pep 5150 pg/mL (0-900) H 10/23/17 16:28 Total Protein 6.6 g/dL (6.3-8.3) 10/27/17 10:07 Albumin 3.3 g/dL (3.5-5.0) L 10/27/17 10:07 Globulin 3.3 gm/dL (2.2-3.9) 10/27/17 10:07 Albumin/Globulin Ratio 1.0 (1.0-2.1) 10/27/17 10:07 Urine Color Yellow (YELLOW) 10/23/17 18:28 Urine Clarity Hazy (Clear) 10/23/17 18:28 Urine pH 5.0 (5.0-8.0) 10/23/17 18:28 Ur Specific [place] 1.012 (1.003-1.030) 10/23/17 18:28 Urine Protein 1+ mg/dL (NEGATIVE) H 10/23/17 18:28 Urine Glucose (UA) Normal mg/dL (Normal) 10/23/17 18:28 Urine Ketones Negative mg/dL (NEGATIVE) 10/23/17 18:28 Urine Blood 1+ (NEGATIVE) H 10/23/17 18:28 Urine Nitrate Negative (NEGATIVE) 10/23/17 18:28 Urine Bilirubin Negative (NEGATIVE) 10/23/17 18:28 Urine Urobilinogen 2.0 mg/dL (0.2-1.0) H 10/23/17 18:28 Ur Leukocyte Esterase Neg Yonathan/uL (Negative) 10/23/17 18:28 Urine WBC (Auto) 4 /hpf (0-5) 10/23/17 18:28 Urine RBC (Auto) 10 /hpf (0-3) H 10/23/17 18:28 Ur Squamous Epith Cells 5 /hpf (0-5) 10/23/17 18:28 Hyaline Casts 0-2 /lpf (0-2) 10/23/17 18:28 - Hospital Course Hospital Course: 81 year old female with past medical history of HTN and osteoporosis presented to [facility] 10/23/17 with shortness of breath, facial swelling swelling , and bilateral lower extremity edema. EKG in the ER showed third degree heart block. Chest x-ray showed "suspicious new infiltrate or opacity in right lower lung most likely pleural effusion." CT of Chest and abdomen showed moderate sized bilateral pleural effusions with mild body wall edema and moderate cardiomegaly with compression atelectasis of lung bases; potentially a reflection of right heart failure. Patient was transfered to ICU under Dr. Sharma's care. There she was monitored on telemetry, with standby BIPAP and bedside external pacer. Dr. Lovelace from cardiology was consulted who consulted with the mechanical equipment sales engineer, Dr. Anderson, who both stated although the patient is hemodynamically stable, a pacemaker should be placed. On 10/25/17, Dr. Anderson placed the pacemaker and patient was returned to ICU for monitoring. Patient was seen and examined by Dr. Lovelace and Dr. Anderson who both deemed her stable for discharge. Patient claimed to be mildly unsteady on her feet which warranted evaluation by physical therapy who recommended transitional care unit. Patient's insurance would not cover TCU. PT stated that she was stable to be discharged home with a visiting nurse and physical therapist attending to her. While on admission patient was treated with lasix originally 40mg IVP transitioned into 20 mg po BID for CHF exacerbation. Patient's potassium was decreased to 3.2 which was repleted and leveled at 3.5 on 10/27/17. Patient was also treated with keflex 250 po TID post pacemaker placement and pepcid 20mg BID prophylaxis. Patient was continued on home medication of norvasc 5mg for chronic hypertension. Upon discharge, patients pacemaker had been interrogated and working effectively. Her shortness of breath had stabilized. Her potassium returned to normal limits. Her vitals were stable as well. Patient was given instructions to continue keflex for 4 more days post discharge. Patient was given script for home nurse and physical therapy evaluations. This is a summary of the patient's hospital course, please see chart for full details. Discharge Exam - Additional Findings Additional findings: - Constitutional Appears: Well, No Acute Distress - Head Exam Head Exam: NORMAL INSPECTION, NORMOCEPHALIC - Eye Exam Eye Exam: EOMI, Normal appearance - ENT Exam ENT Exam: Mucous Membranes Moist - Respiratory Exam Respiratory Exam: Chest Wall Tenderness, Clear to Ausculation Bilateral, NORMAL BREATHING PATTERN - Cardiovascular Exam Cardiovascular Exam: REGULAR RHYTHM Additional comments: Patient has dressing/bandages over left chest shoulder area. - Neurological Exam Neurological Exam: Alert, Awake Neuro motor strength exam: Left Upper Extremity: 5, Right Upper Extremity: 5 - Psychiatric Exam Psychiatric exam: Normal Affect, Normal Mood - Skin Skin Exam: Normal Color, Warm Discharge Plan - Discharge Medications Prescriptions: amLODIPine [Norvasc] 5 mg PO DAILY #30 tab Cephalexin [Keflex] 250 mg PO TID #12 cap Omeprazole 20 mg PO DAILY #30 capsule.dr - Follow Up Plan Condition: SERIOUS Disposition: HOME/ ROUTINE Instructions: Heart Failure, Adult (DC), Heart Block, Adult (DC), Pacemaker (DC ) Additional Instructions: Patient stable as per Dr. Dimas and cardiology. Patient to follow up with Dr. Anderson (cardiology) within one week. Patient to also follow up with her primary care doctor, Dr. Ramires within one week. Patient to continue taking her home medications Norvasc and Omeprazole. Patient to also take 4 more days of Keflex three times each day. Patient will need home care and physical therapy at home. Patient's family explained that she will need extra help with walking up stairs. Patient should return to Emergency Room if symptoms return or if she experiences severe chest pain. Patient explained instructions who understands and agrees. Referrals: No Anderson MD [Staff Provider] - Bhanu Ramires MD [Staff Provider] -
== END 2017-10-27 16:40 | disposition home or self-care (01) | DRG 548 ==
LOC: C.ER 15:47 → C.9I 21:00
PROVIDERS: ADMIT Hospitalist; ATTEND Hospitalist
PROC: 02H63JZ Insertion of Pacemaker Lead into Right Atrium, Percutaneous Approach (ICD-10-PCS; 2017-10-25)
PROC: 02HK3JZ Insertion of Pacemaker Lead into Right Ventricle, Percutaneous Approach (ICD-10-PCS; 2017-10-25)
PROC: 0JH606Z Insertion of Pacemaker, Dual Chamber into Chest Subcutaneous Tissue and Fascia, Open Approach (ICD-10-PCS; principal; 2017-10-25 09:00)
DX: I44.2 Atrioventricular block, complete (principal); I50.30 Unspecified diastolic (congestive) heart failure; I11.0 Hypertensive heart disease with heart failure; J98.11 Atelectasis; I35.1 Nonrheumatic aortic (valve) insufficiency; Z86.11 Personal history of tuberculosis; I27.20 Pulmonary hypertension, unspecified

== ENCOUNTER 2018-07-05 13:13 | Emergency (ER) | payer MEDICAID ==
[2018-07-05 13:28] VITALS: O2SAT 98
--- NOTE | 2018-07-05 15:14 | C.PDOC ---
History Of Present Illness 82 y/o female pt presents to the ER with family member c/o right upper thigh pain and redness for x3 days. Pt reports pain has been worsening ever since she had her pacemaker inserted x8 months ago. Pt denies fever, chills, numbness and weakness. Time Seen by Provider: 07/05/18 14:33 Chief Complaint (Nursing): Lower Extremity Problem/Injury History Per: Patient History/Exam Limitations: no limitations Onset/Duration Of Symptoms: Days (x3), Gradual Current Symptoms Are (Timing): Still Present Past Medical History Reviewed: Historical Data, Nursing Documentation, Vital Signs Vital Signs: Last Vital Signs Temp 98.3 F 07/05/18 13:24 Pulse 80 07/05/18 13:24 Resp 18 07/05/18 13:24 BP 163/70 H 07/05/18 13:24 Pulse Ox 98 07/05/18 13:24 - Medical History PMH: Asthma, HTN, Osteoporosis - [facility] Procedures INSERT PACE. DUAL JOSE IN CHEST SUBCU/FASCIA, OPEN (10/23/17) INSERTION OF PACEMAKER LEAD INTO R VENTRICLE, PERC APPROACH (10/23/17) INSERTION OF PACEMAKER LEAD INTO RIGHT ATRIUM, PERC APPROACH (10/23/17) Family History: States: Unknown Family Hx - Social History Hx Alcohol Use: No Hx Substance Use: No - Immunization History Hx Tetanus Toxoid Vaccination: No Hx Influenza Vaccination: No Hx Pneumococcal Vaccination: No Review Of Systems Constitutional: Negative for: Fever, Chills Skin: Positive for: Other (redness and swelling to the right thigh ) Neurological: Negative for: Weakness, Numbness Physical Exam - Physical Exam Appears: Non-toxic, No Acute Distress Skin: Warm, Dry Head: Atraumatic, Normacephalic Eye(s): bilateral: PERRL, EOMI Chest: Symmetrical Cardiovascular: Rhythm Regular, No Murmur Respiratory: Normal Breath Sounds, No Rales, No Rhonchi, No Wheezing Gastrointestinal/Abdominal: Soft, No Tenderness Extremity: Normal ROM (x4), Tenderness (right lateral thigh tenderness ), No Calf Tenderness, No Deformity, Other (patchy erythema to anterior vazquez area; mild warmth ) Pulses: Left Dorsalis Pedis: Normal, Right Dorsalis Pedis: Normal Neurological/Psych: Oriented x3, Normal Speech, Normal Cognition ED Course And Treatment - Laboratory Results Result Diagrams: 07/05/18 15:23 07/05/18 15:23 O2 Sat by Pulse Oximetry: 98 (RA) Pulse Ox Interpretation: Normal Medical Decision Making Medical Decision Making: Impression: right upper thigh redness and pain Plans: -- chem labs -- blood work -- Venous duplex scan 1650 pt with negative doppler. discussed with Dr Ramires pt's visist to ed and how i will d/c her with kef;ex with office visit on tue. Disposition Discussed With Dr.: Bhanu Ramires Doctor Will See Patient In The: Office Counseled Patient/Family Regarding: Studies Performed, Diagnosis, Need For Followup, Rx Given - Disposition Referrals: Bhanu Ramires MD [Family Provider] - Disposition: HOME/ ROUTINE Disposition Time: 16:59 Condition: GOOD Additional Instructions: Artem antibiticos charles prescritos. Tylenol para el dolor. Si renedss i aumenta ms all de la lnea dibujada, o si se presenta fiebre o un dolor peor, regrese a ER; de otra manera. Seguir con el Dr. Villalba en [place] oficina el v[place] Take antibioitcs as prescrbied. Tylenol for pain. If renedss i increases past line drawn, or fever or worse pain develop, return to ER; otherwise. follw up with Dr Ramires in his office on Tuesday./ Prescriptions: Acetaminophen [Tylenol 325mg tab] 650 mg PO Q6 #30 tab Cephalexin [Keflex] 500 mg PO Q6 #28 capsule Instructions: Cellulitis (Skin Infection), Adult (DC) Forms: Gen Discharge Inst Azerbaijani, [facility] (Azerbaijani) - Clinical Impression Clinical Impression: Cellulitis of right leg without foot - PA / SYSTEMATIC THEOLOGY PROFESSOR / Resident Statement / has reviewed & agrees with the documentation as recorded. - Scribe Statement The provider has reviewed the documentation as recorded by the Trenton Weinstein Do All medical record entries made by the Scribe were at my direction and personally dictated by me. I have reviewed the chart and agree that the record accurately reflects my personal performance of the history, physical exam, medical decision making, and the department course for this patient. I have also personally directed, reviewed, and agree with the discharge instructions and disposition.
[2018-07-05 15:35] LABS: BASO % 0.4 % (0.0-2.0); EOS % 0.4 % (0.0-4.0); LYMPH # 1.3 K/uL (1.0-4.3); LYMPH % 15.4 % (20.0-40.0); MEAN CORPUSCULAR HEMOGLOBIN 29.4 pg (27.0-31.0); MEAN CORPUSCULAR HGB CONC 33.6 g/dL (33.0-37.0); MEAN PLATELET VOLUME 11.1 fL (7.2-11.7); MONO # 0.8 K/uL (0.0-0.8); NEUT % 73.8 % (50.0-75.0); RBC 3.48 Mil/uL (3.80-5.20); RED CELL DISTRIBUTION WIDTH 12.7 % (11.5-14.5); WHITE BLOOD COUNT 8.1 K/uL (4.8-10.8)
[2018-07-05 15:37] LABS: HEMOGLOBIN 10.2 g/dL (11.0-16.0); MEAN CELL VOLUME 87.5 fL (81.0-99.0)
[2018-07-05 15:46] LABS: ALB/GLOB RATIO 1.1 (1.0-2.1); ALBUMIN 3.8 g/dL (3.5-5.0)
[2018-07-05 17:32] VITALS: BP 145/92; PULSE 84; RESP 20; TEMP 98.9
--- NOTE | 2018-07-06 14:36 | VASCLAB ---
Date of service: 07/05/2018 PROCEDURE: Right Lower Extremity Venous Duplex Exam. HISTORY: right thigh pain PRIORS: None. TECHNIQUE: Right common femoral, femoral, popliteal and posterior tibial, peroneal and great saphenous veins were evaluated. Flow was assessed with color Doppler, compressibility, assessment of phasic flow and augmentation response. Report prepared by CHANO Hoff, RVT FINDINGS: RIGHT: 1. Common Femoral Vein: 1.1. Compressibility - Fully compressible: Thrombus - None: Flow - Phasic: Augmentation -Normal: Reflux - None. 2. Femoral Vein: 2.1. Compressibility - Fully compressible: Thrombus - None: Flow - Phasic: Augmentation -Normal: Reflux - None. 3. Popliteal Vein: 3.1. Compressibility - Fully compressible: Thrombus - None: Flow - Phasic: Augmentation -Normal: Reflux - None. 4. Posterior Tibial Vein: 4.1. Compressibility - Fully compressible: Thrombus - None: Flow - Phasic: Augmentation -Normal: Reflux - None. 5. Peroneal Vein: 5.1. Compressibility - Fully compressible: Thrombus - None: Flow - Phasic: Augmentation -Normal: Reflux - None. 6. Great Saphenous Vein: 6.1. Compressibility - Fully compressible: Thrombus -None: Flow - Phasic: Augmentation - Normal: Reflux - None. OTHER FINDINGS: IMPRESSION: No evidence of deep or superficial vein thrombosis of the right lower extremity with excellent venous flow. Normal valve function noted of the right side. Normal venous flow noted in the left common femoral vein.
== END 2018-07-05 17:33 | disposition home or self-care (01) ==
LOC: C.ER 13:13
DX: L03.115 Cellulitis of right lower limb (principal); I10 Essential (primary) hypertension; M81.0 Age-related osteoporosis without current pathological fracture